=== PATIENT | female | born 1935 | race Caucasian/White ===

== ENCOUNTER 2018-12-05 13:45 | Inpatient (IN) | payer OTHER, MEDICAID ==
[~2018-12-05] VITALS: Ht 162.5 cm; Wt 53.5 kg
--- NOTE | ~2018-12-05 | EKG ---
[place], [place] ELECTROCARDIOGRAM REPORT NAME: DIANA BASHIR UNIT #: [id number] ROOM: 312 DOCTOR: LUCIANO DRAFT REPORT BIRTHDATE: [birth year] [facility] Test Date: 2018-12-05 Test Time: 18:07:02 Pat Name: DIANA BASHIR Department: Room: [facility] 1 Gender: F Combination Saw Operator: Sally Castaneda : 1935 Requested By: COSTA LAMA Order Number: [id number] Reading MD: Raudel Hernández Measurements Intervals [place] Rate: 108 P: 77 GA: 171 QRS: -9 QRSD: 94 T: 84 QT: 335 QTc: 449 Interpretive Statements Sinus tachycardia Atrial premature complex Right atrial enlargement No previous ECG available for comparison Electronically Signed On 12-08-2018 11:52:50 PDT by Raudel Hernández CM:EKGRPT:ELECTROCARDIOGRAM REPORT [id number] [id number] COSTA WOLF DRAFT REPORT COSTA LAMA
--- NOTE | ~2018-12-05 | DS ---
[place], [place] DISCHARGE SUMMARY NAME: DIANA BASHIR UNIT #: [id number] ROOM: 312 DOCTOR: LALITHA SAAVEDRA MD BIRTHDATE: [birth year] DOS: 12/23/2018 CHIEF COMPLAINT: "I would like a cup of coffee." HISTORY OF PRESENT ILLNESS: This is an 83-year-old white female who resides at [facility]. The patient was admitted due to increased agitation and aggressiveness. The patient has been attempting to barricade other residents into their rooms. The patient was also chasing other residents in the building. The patient did not like to be alone, so she would grab on to other residents and not let them leave her sight. The patient was also finger painting with bowel movements and basically out of control to the point where she was putting both herself and others at substantial risk of harm. The patient was admitted now to rule out organic factors, to stabilize on medication and to return to the least restrictive environment when psychiatrically stable. SUMMARY OF THE HOSPITAL COURSE: The patient was admitted to the unit where initially her Depakote was adjusted in the hopes that it would control her mood lability. She was maintained on Exelon and Namenda. It was felt that there was definitely a significant anxiety component. Vistaril was used at first, but was unsuccessful, so she was started simultaneously on Cymbalta 30 mg at bedtime and Klonopin 0.5 mg 3 times a day. Dose of Klonopin was increased to its max of 1 mg 3 times a day and then subsequently the daytime dose was lowered to 0.5 twice a day and 1 mg at bedtime. The dose of the Cymbalta was brought up to 60 mg at bedtime to help with depression, decrease anxiety and aid sleep. This did seem to impact positively on her overall demeanor. Zyprexa was utilized in the place of Depakote ultimately in the hopes that it would augment the effectiveness of the antidepressant as well as help her sleep and stabilize her mood. Overall, she improved gradually with this combination to the point where she was no longer grabbing out at others. She was not trying to barricade people into rooms and she became much more redirectable. The patient then returned back to [facility]. MENTAL STATUS AT DISCHARGE: The patient is alert and oriented to self only. Her responses are short and simple, oftentimes inappropriate. There, however, was no agitation or aggression. No hypomania or jimenez. No gross psychotic symptoms. No auditory or visual hallucinations. No delusions, no paranoia. Short-term memory is very poor. FINAL DIAGNOSES: Major depression, recurrent, severe with psychotic features; Alzheimer's dementia. DISPOSITION: The patient is going to be returned to [facility]. At the time of discharge, she was medically and psychiatrically stable. I will be the treating psychiatrist of record upon her readmission there. [place], [place] DISCHARGE SUMMARY NAME: DIANA BASHIR UNIT #: [id number] ROOM: 312 DOCTOR: LALITHA SAAVEDRA MD BIRTHDATE: [birth year] LALITHA SAAVEDRA MD CM:ARIS [id number] LALITHA SAAVEDRA MD 12/23/18 1323 interface
--- NOTE | ~2018-12-05 | PR ---
[place], [place] PROGRESS NOTE NAME: DIANA BASHIR UNIT #: [id number] ROOM: 312 DOCTOR: LALITHA SAAVEDRA MD BIRTHDATE: [birth year] DOS: 12/08/2018 CHIEF COMPLAINT: "Morning." SUMMARY OF THE VISIT: The patient was interviewed as she was resting quietly in bed. As I entered and awoke her, she wished me good morning and then motioned towards me to attempt to hold her hand. The patient was fairly pleasant, but seems somewhat anxious and also somewhat labile. She redirected well and with a little bit of support did calm down quickly. MENTAL STATUS: She is at least alert and oriented to self. It is unclear if she realizes she is in the hospital, let alone [place]. She is not oriented to time. Mood for the most part is somewhat anxious and fretful. There is some mood lability noted. There are no gross psychotic symptoms. She does process information slowly and short term memory is exceedingly poor. PLAN: Her valproic acid level is low at 45.9. I will increase her Depakote Sprinkles to 500 mg t.i.d. in an effort to decrease mood lability. I will also reach out to [facility] to determine if she has ever been on Nuedexta to explore all possible treatment options. We will continue to engage her in individual and redmond milieu activity, returning to the least restrictive environment when psychiatrically stable. LALITHA SAAVEDRA MD CM:PNTRANS [id number] LALITHA SAAVEDRA MD 12/08/18 0945 interface
--- NOTE | ~2018-12-05 | PR ---
[place], [place] PROGRESS NOTE NAME: DIANA BASHIR UNIT #: [id number] ROOM: 312 DOCTOR: LALITHA SAAVEDRA MD BIRTHDATE: [birth year] DOS: 12/11/2018 INTERVAL NOTE CHIEF COMPLAINT: "Good morning come here." SUMMARY OF THE VISIT: The patient was interviewed as she was sitting in a Miriam chair in the quiet room. She engaged readily in superficial conversation. She was fairly bright and pleasant. She did want me to come closer to me and reached out for me repeatedly. Nurses report, she continues to require a great deal of support and redirection. MENTAL STATUS: She is alert and oriented to self only, doubtful place or time. Mood does seem to still be labile and at times inappropriate. There is no jimenez, hypomania or psychosis. She does process conversation slowly and short term memory continues to be problematic. PLAN: I will go ahead and check a valproic acid level in the a.m. as I am trying to achieve a level between 60 and 80. I will also increase her straight Ativan from 0.5 mg t.i.d. to 1 mg t.i.d. in an effort to decrease her overriding anxiety. We will continue to engage in individual and redmond milieu activity, returning to the least restrictive environment when psychiatrically stable. LALITHA SAAVEDRA MD CM:PNTRANS [id number] LALITHA SAAVERDA MD 12/11/18 1300 interface
--- NOTE | ~2018-12-05 | PR ---
[place], [place] PROGRESS NOTE NAME: DIANA BASHIR UNIT #: [id number] ROOM: 312 DOCTOR: LALITHA SAAVEDRA MD BIRTHDATE: [birth year] DOS: 12/15/2018 INTERVAL NOTE CHIEF COMPLAINT: The patient was somnolent. SUMMARY OF THE VISIT: The patient was attempted to be interviewed as she was resting in a Miriam chair in the quiet room. As I approached her and called out her name and gently touched her shoulder, she did not respond to me. She was very somnolent. Nurses report that she has her days and nights mixed up. MENTAL STATUS: My mental status is limited due to her overall level of somnolence. PLAN: I will discontinue her a.m. dose of Zyprexa to lessen any potential for daytime sedation. I will also switch her Cymbalta back to bedtime, again attempting to lessen daytime sedation and improving nighttime sedation. We will engage in individual and redmond milieu activity, returning to the least restrictive environment when psychiatrically stable. LALITHA SAAVEDRA MD CM:PNTRANS 0 55 LALITHA SAAVEDRA MD 12/15/182152 interface
--- NOTE | ~2018-12-05 | PR ---
[place], [place] PROGRESS NOTE NAME: DIANA BASHIR UNIT #: [id number] ROOM: 312 DOCTOR: LALITHA SAAVEDRA MD BIRTHDATE: [birth year] DOS: 12/09/2018 CHIEF COMPLAINT: "Hey, come here, come here, come here." SUMMARY OF THE VISIT: The patient was interviewed as she was resting quietly in bed. As I approached, she reached out to me and repeatedly asked me to come towards her. Nurses report that she does require a lot of support and redirection and likes to have her handheld or be touched. She requires a great deal of reassurance. MENTAL STATUS EXAMINATION: She is alert and oriented to self, doubtful to place or time. Mood does seem to be very anxious and depressed. She is rather labile too. Memory is poor. PLAN: I will go ahead and increase the Zyprexa to 2.5 mg in the morning and 5 mg at bedtime and add a low-dose of Ativan 0.5 mg t.i.d. to help relieve the anxiety. We will monitor for risk, benefit, engage in individual and redmond milieu activity, returning to the least restrictive environment when stable. LALITHA SAAVEDRA MD CM:PNTRANS 40 LALITHA SAAVEDRA MD 12/09/182138 interface
--- NOTE | ~2018-12-05 | PR ---
[place], [place] PROGRESS NOTE NAME: DIANA BASHIR UNIT #: [id number] ROOM: 312 DOCTOR: LALITHA SAAVEDRA MD BIRTHDATE: [birth year] DOS: 12/19/2018 CHIEF COMPLAINT: "Morning." SUMMARY OF THE VISIT: The patient was interviewed as she was resting in a Miriam chair. She was somewhat somnolent, having received a p.r.n. last evening. In general, there has been a slight improvement in that she is having more good periods, but she still has periods of yelling out and attempting to grab MENTAL STATUS: My mental status this morning was limited due to her somnolence. She did make eye contact when I called her name and she spoke briefly to me, but then drifted back off into sleep. PLAN: At this point in time, I will increase her Zyprexa to 7.5 mg, but attempt to give it at 1800 hours to see if I can get ahead of her , so she does not require p.r.n. She does seem to be tolerating these straight medicines well. We will monitor and support. We will engage in individual and redmond milieu activity, returning to the least restrictive environment when psychiatrically stable. LALITHA SAAVEDRA MD CM:PNTRANS [id number] LALITHA SAAVEDRA MD 12/19/18 1516 interface
--- NOTE | ~2018-12-05 | PR ---
[place], [place] PROGRESS NOTE NAME: DIANA BASHIR UNIT #: [id number] ROOM: 312 DOCTOR: LALITHA SAAVEDRA MD BIRTHDATE: [birth year] DOS: 12/16/2018 INTERVAL NOTE CHIEF COMPLAINT: "Hey, help me here." SUMMARY OF THE VISIT: The patient was interviewed as she was resting in a Miriam chair. She was awake and alert. Nurses report she continues to yell and grab out. There does seem to be a significant anxiety component present. MENTAL STATUS: She is alert and oriented to person, not necessarily place or time. Mood does seem to be still anxious and labile. She does require a great deal of support and redirection. There is no overt auditory or visual hallucination, delusion, or paranoia. Short-term memory remains very poor. PLAN: Despite having a therapeutic valproic acid level, the patient's behavior persists, so I will discontinue the Depakote given the fact that it does seem to be ineffective. Instead, I will raise the Klonopin to 0.5 mg 3 times a day in an effort to stabilize mood and decrease her anxiety. We will monitor for risk, benefit, engage in individual and redmond milieu activity, returning then to the least restrictive environment when psychiatrically stable. LALITHA SAAVEDRA MD CM:PNTRANS [id number] LALITHA SAAVEDRA MD 12/16/18 1414 interface
--- NOTE | ~2018-12-05 | PR ---
[place], [place] PROGRESS NOTE NAME: IDANA BASHIR UNIT #: [id number] ROOM: 312 DOCTOR: ANALIA VALENZUELA CNP BIRTHDATE: [birth year] DOS: 12/21/2018 CHIEF COMPLAINT: "It is better." SUMMARY OF THE VISIT: The patient was interviewed as she sat in a reclining chair in the quiet room. The patient reports that she slept okay. Staff reports that the patient had minimal behaviors throughout the day yesterday. However, last evening, she began to yell out. She was given Geodon IM at 9:30 p.m. It was effective. The patient did sleep throughout the night. MENTAL STATUS EXAMINATION: The patient is alert and oriented to self. She was pleasant and cooperative with me this morning. No jimenez or hypomania noted. No delusions or paranoia noted. No psychotic symptoms noted. No auditory or visual hallucinations noted. The patient's mood was calm. Affect congruent with mood. No agitation, irritability or anxiety noted at this time. PLAN: We will continue the patient's medications as prescribed. The patient does appear to be showing improvement. She appears to be tolerating medications without any side effects. Continue to encourage the patient to engage in individual and redmond milieu activity. Continue fall and safety precautions. Plan is to return the patient to the least restrictive environment when she is considered psychiatrically stable. Analia Valenzuela CNP CM:PNTRANS 11 25 ANALIA VALENZUELA CNP 12/21/182121 interface
--- NOTE | ~2018-12-05 | PR ---
[place], [place] PROGRESS NOTE NAME: DIANA BASHIR UNIT #: [id number] ROOM: 312 DOCTOR: LALITHA SAAVEDRA MD BIRTHDATE: [birth year] DOS: 12/12/2018 INTERVAL NOTE CHIEF COMPLAINT: "Morning." SUMMARY OF THE VISIT: The patient was interviewed as she was feeding herself breakfast. She smiled as I approached and nodded in approval. Otherwise, she chose not to or could not respond to me. Nurses report that she did very well yesterday when the family brought in a weighted blanket, and this did seem to give her some sense of comfort. Of note, I did see her having substantial upper body tremors as she was feeding herself. MENTAL STATUS: She is alert and oriented to self only. Her responses are short, simple, at times nonsensical. There was no agitation or aggression, however. PLAN: I will go ahead and add Cogentin 0.5 mg b.i.d. to see if this lessens the tremor. Whether the tremors are extrapyramidal secondary to the Zyprexa or could be related even to the valproic acid level which is 93.3. If the Cogentin helps, then it is the Zyprexa; if not, may need to back off on the valproic acid a little bit bringing the level between 60 and 80. We will support and monitor. LALITHA SAAVEDRA MD CM:PNTRANS [id number] LALITHA SAAVEDRA MD 12/13/18 0130 interface
--- NOTE | ~2018-12-05 | PR ---
[place], [place] PROGRESS NOTE NAME: DIANA BASHIR UNIT #: [id number] ROOM: 312 DOCTOR: ANALIA VALENZUELA CNP BIRTHDATE: [birth year] DOS: 12/20/2018 CHIEF COMPLAINT: "I want to go home, so I can go to bed." SUMMARY OF THE VISIT: The patient was interviewed as she sat in the quiet room. The patient engaged in conversation with me, telling me that she is not good and she wants to go home, so that she can go to bed. Staff reports that the patient did not sleep last night. She has been showing some slight improvement in her behaviors and has been taking medications as prescribed. Appetite fair. MENTAL STATUS EXAMINATION: The patient is alert and oriented to self. She was pleasant with me. No overt jimenze or hypomania noted. No delusion or paranoia noted. No psychotic symptoms noted. No auditory or visual hallucinations noted. The patient's mood was calm. Her affect is congruent with mood. PLAN: I will continue the patient's medications as prescribed. Monitor for effectiveness and tolerability. The patient will be encouraged to engage in individual and redmond milieu activity. Continue fall and safety precautions. Return the patient to the least restrictive environment when she is considered psychiatrically stable. Analia Valenzuela CNP CM:PNTRANS 0 [id number] ANALIA VALENZUELA CNP 12/20/18 1122 interface
--- NOTE | ~2018-12-05 | PR ---
[place], [place] PROGRESS NOTE NAME: DIANA BASHIR UNIT #: [id number] ROOM: 312 DOCTOR: ANALIA VALENZUELA CNP BIRTHDATE: [birth year] DOS: 12/22/2018 CHIEF COMPLAINT: "I forgot to take the medicine." SUMMARY OF THE VISIT: The patient was interviewed as she sat in the quiet room. The patient did engage somewhat in conversation with me. Staff reports that the patient continues to have increasing agitation in the evening. She was given p.r.n. Geodon which was not effective, so she was also given Vistaril 50 mg IM which was effective. The patient did sleep throughout the night. MENTAL STATUS EXAMINATION: The patient is alert and oriented to self. She was pleasant and cooperative with me. No overt jimenez or hypomania noted. No delusions or paranoia noted. No psychotic symptoms noted. No auditory or visual hallucinations noted. The patient's mood is calm at this time. Affect congruent with mood. No agitation, aggression or irritability noted. PLAN: I will increase the patient's Zyprexa to 10 mg a day to try to help increase with the increased agitation. I will continue to monitor the patient for benefits of medication as well as for side effects. Continue to encourage the patient to engage in individual and redmond milieu activity. Continue fall and safety precautions. Plan is to return the patient to the least restrictive environment when she is considered psychiatrically stable. Analia Valenzuela CNP CM:PNTRANS [id number] ANALIA VALENZUELA CNP 12/23/18 0305 interface
--- NOTE | ~2018-12-05 | PR ---
[place], [place] PROGRESS NOTE NAME: DIANA BASHIR UNIT #: [id number] ROOM: 312 DOCTOR: LALITHA SAAVEDRA MD BIRTHDATE: [birth year] DOS: 12/18/2018 INTERVAL NOTE CHIEF COMPLAINT: "Good morning." SUMMARY OF THE VISIT: The patient was interviewed as she was resting in a Miriam chair. She did awake, make eye contact and wished me good morning. Otherwise, her responses were nonsensical. Nurses report that she did require p.r.n. last evening, but that the day did seem to go better. MENTAL STATUS: She is alert and oriented to self, not place or time. Mood does seem to be more calm and euthymic. Affect is more appropriate. There is no jimenez, hypomania or psychosis. Short-term memory is very poor. PLAN: I will increase the Klonopin, especially the nighttime dose to aid sleep and decrease sundowning. The dose will now be 0.5 mg twice a day and 1 mg at bedtime. We will monitor for risk, benefit, engage in individual and redmond milieu activity, returning then to the least restrictive environment when psychiatrically stable. LALITHA SAAVEDRA MD CM:PNTRANS 1121 [id number] LALITHA SAAVEDRA MD 12/18/18 1445 interface
[2018-12-05] MEDS ORDERED: ASPIRIN81 M1 PO (14:33)
[2018-12-05] MEDS ORDERED: COMBIGAN 0.2%-0.5 ML OU (14:34)
[2018-12-05] MEDS ORDERED: COZAAR50 M1 PO (14:34)
[2018-12-05] MEDS ORDERED: DEPAKOTE SPRIN125 MG PO (14:35)
[2018-12-05] MEDS ORDERED: EXEL13.31 T (14:36)
[2018-12-05] MEDS ORDERED: ANTI-DIARRHEAL2 MG PO (14:36)
[2018-12-05] MEDS ORDERED: ONE DAILY COMP1 EACH PO (14:37)
[2018-12-05] MEDS ORDERED: NAMENDA5 M1 PO (14:38)
[2018-12-05] MEDS ORDERED: RISPERDAL0.5 MG PO (14:38)
[2018-12-05] MEDS ORDERED: RISPERDAL1 M1 PO (14:39)
[2018-12-05] MEDS ORDERED: XALATAN 0.005%2.5 ML OU (14:41)
[2018-12-05] MEDS ORDERED: SECURA PROTECTI50 GM T (14:41)
[2018-12-05] MEDS ORDERED: DAILY VITAMIN1 EAC1 PO (14:49)
--- NOTE | 2018-12-05 16:32 | NUR ---
DIANA BASHIR a 83 year old F admitted via wheel chair from the ADMITTING as a voluntary BY POA admission. Arrived on unit at 1632. ALLERGIES: NKA. Vital signs are: 98.0-68-18-110/62 SPO2 97%RA . The client's POA verbally consented to the following forms with stated understanding: Authorization For The Release of Medical Information, Clothing List, Consent to Voluntary Admission and Hospitalization, Consent and Release Forms/Receipt of Rights, Acknowledgement of Advance Directive Information, Behavioral Health Consent Form, and Informed Consent of Medications. Admitted under the services of Dr. KERI AGUILARLALITHA. A search was conducted and hazardous articles were removed. Client was oriented to the unit. CHRISTI PALOMARES
[2018-12-05 16:55] VITALS: BP 110/62
--- NOTE | 2018-12-05 16:55 | NUR ---
CALL PLACED TO HOSPITALIST NUMBER ONE [phone]. DR. LAMA ANSWERED, MADE AWARE OF NEW CONSULT FOR MEDICAL MANAGEMENT.
[2018-12-05 18:28] LABS: BASO # 0.1 10*3/uL (0.0-0.1); BASO % 1.1 % (0.0-1.0); EOS # 0.2 10*3/uL (0.0-0.4); EOS % 2.7 % (1.0-4.0); HEMATOCRIT 40.2 % (37.0-47.0); HEMOGLOBIN 12.8 g/dl (12.0-16.0); LYMPH # 2.1 10*3/uL (1.3-4.4); LYMPH % 33.7 % (27.0-41.0); MEAN CELL VOLUME 91.2 fl (81.0-99.0); MEAN CORPUSCULAR HGB CONC 31.8 g/dl (33.0-37.0); MEAN PLATELET VOLUME 9.1 fl (9.6-12.3); MONO # 0.8 10*3/uL (0.1-1.0); MONO % 13.4 % (3.0-9.0); NEUT # 3.1 10*3/uL (2.3-7.9); NEUT % 48.9 % (47.0-73.0); PLATELET COUNT AUTOMATED 306 10*3/uL (130-400); RED BLOOD COUNT 4.41 10*6/uL (4.10-5.10); RED CELL DISTRI WIDTH 13.3 % (0-14.5); WHITE BLOOD COUNT 6.3 10*3/uL (4.8-10.8)
--- NOTE | 2018-12-05 18:41 | NUR ---
SPOKE WITH DR. LAMA REGARDING EKG RESULTS. DR. LAMA STATES TO MONITOR PT'S PULSE WHEN RESTING TO ENSURE SHE IS NOT TACHYCARDIC.
[2018-12-05 18:45] LABS: ALBUMIN 3.2 gm/dl (3.1-4.5); ALKALINE PHOSPHATASE 71 U/L (45-117); BUN 18 mg/dl (7-24); CHLORIDE 105 mmol/L (98-107); PHOSPHOROUS 3.7 mg/dL (2.5-4.9); POTASSIUM 3.6 mmol/L (3.5-5.1); SGOT/AST 14 IU/L (3-35); SGPT/ALT 20 U/L (12-78); SODIUM 143 mmol/L (136-145); TOTAL PROTEIN 6.1 gm/dL (6.4-8.2)
[2018-12-05 18:51] LABS: TROPONIN I < 0.015 ng/ml (<0.045)
--- NOTE | 2018-12-05 19:45 | NUR ---
MARITA DAVIDSON NOTIFIED OF NEW ADMISSION.
[2018-12-05 19:54] VITALS: BP 100/61; BP 100/78
--- NOTE | 2018-12-05 20:00 | NUR ---
MANUAL BLOOD PRESSURE OF 100/78
--- NOTE | 2018-12-05 20:12 | NUR ---
PATIENT PACING HALLS, FOLLOWING AROUND MENTAL HEALTH WORKER. PT WALKING AT A FAST PACE WITH HANDS OUT TO MENTAL HEALTH WORKER STATING "WAIT FOR ME. YOU CANT LEAVE ME. TAKE ME BACK TO MY HOUSE, PLEASE. I AM TIRED". IF STAFF WALKED AWAY FROM PATIENT, PT WOULD FOLLOW AROUND STAFF TELLING THEM TO WAIT FOR HER. PT WENT TO WALK INTO THE DINING ROOM AND STATED "OH, WAY TO MANY PEOPLE.". PT LOOKING AT OTHER PATIENTS, EYE DARTING. RESTLESS AND ANXIOUS. REDIRECTION, REASSURANCE, 1:1 INTERACTION, EMOTIONAL SUPPORT, AND LOW STIMULI ENVIRONMENT PROVIDED. ALL NONPHARMALOGICAL INTERVENTIONS INEFFECTIVE. PATIENT INCREASED AGITATION AND ANXIETY. PRN PO 1MG ATIVAN GIVEN AT THIS TIME PER PRN ORDER. WILL CONTINUE TO MONITOR FOR EFFECTIVENESS.
--- NOTE | 2018-12-05 21:38 | NUR ---
PATIENTS SCHEDULED MEDICATIONS; BRIMONIDINE, ZINC OXIDE, LANTAPROST; BROUGHT OVER BY PHARMACY AT THIS TIME. PATIENT IN BED SLEEPING AT THIS TIME.
--- NOTE | 2018-12-05 21:45 | NUR ---
PRN ATIVAN EFFECTIVE. PT LAYING DOWN IN BED WITH EYES CLOSED. RESPS EVEN AND UNLABORED ON ROOM AIR. NO S/S OF DISTRESS NOTED. WILL CONTINUE TO MONITOR.
--- NOTE | 2018-12-05 23:41 | NUR ---
PATIENT REFUSED ADMISSION SKIN ASSESSMENT.
--- NOTE | 2018-12-06 | NUR ---
RADIAL PULSE 76. PT RESTING WITH EYES CLOSED. RESPS EVEN AND UNLABORED ON ROOM AIR. NO S/S OF DISTRESS NOTED.
--- NOTE | 2018-12-06 01:06 | NUR ---
P- ALERT TO PERSON ONLY. CONFUSION AND ST/LT MEMORY DEFICITS NOTED. MOOD ANXIOUS AND PARANOID. RESTLESS, PACING, FOLLOWING STAFF. I- REORIENT FREQUENTLY WHEN CONFUSION IS NOTED. 1:1 THERAPEUTIC INTERACTION WITH EMOTIONAL SUPPORT AND VENTILATION OF FEELINGS PROVIDED. PROVIDE LOW STIMULI/LIGHT ENVIRONMENT. PROVIDE REDIRECTION AND REASSURANCE. PROVIDE WITH MEDICATIONS ON TIME WITH EDUCATION ON EACH. ASSESS MOOD, ORIENTATION, SI/HI, HALLUCINATIONS, DELUSIONS OR PAIN. R- PATIENT REMAINS ALERT TO PERSON ONLY EVEN WITH REORIENTAION PROVIDED. PATIENT ANXIOUS. PT FOLLOWING AROUND MENTAL HEALTHCARE WORKER DURING THE BEGINNING OF THE SHIFT. PT FOLLOWING STAFF, REACHING OUT TO HOLD STAFFS HAND. PT STATING "DONT LEAVE ME. WAIT FOR ME, I NEED YOU TO STAY WITH ME. COME ON, WE NEED TO GO BACK TO MY HOUSE. I AM TIRED, COME ON WE ARE GOING TO BED". PT SEEKING AND PREOCCUPIED WITH 1:1 INTERACTION. PT BECAME ANXIOUS WHEN FIRST WALKED INTO THE DINING ROOM, PT STATED "OH, THERE IS WAY TO MANY PEOPLE IN HERE". REASSURANCE EFFECTIVE. 1:1 INTEARCTION EFFECTIVE. PRN EFFECTIVE. MEDICATION COMPLIANT. UNABLE TO ASSESS SI/HI OR PAIN, PT REFUSED TO TALK MUCH TO THIS NURSE. PATIENT ONLY WANTED TO BE WITH MENTAL HEALTHCARE WORKER. NO S/S OF INTERACTING WITH INTERNAL STIMULI. NO DELUSIONAL THOUGHT PROCESS NOTED. RESPS EVEN AND UNLABORED ON ROOM AIR. NO S/S OF DISTRESS NOTED. AFTER MEDICATIONS GIVEN, PT WAS ASSISTED TO HER ROOM. PT REMAINED IN BED THE REST OF THE TIME WITH EYES CLOSED. GAIT STEADY WHILE AMBULATING. P- REORIENTATION PROVIDED FREQUENTLY WHEN CONFUSION IS NOTED. 1:1 THERAPEUTIC INTERACTION WITH EMTIONAL SUPPORT AND VENTILATION OF FEELINGS PROVIDED WHEN NECESSARY. PROVIDE MEDICATIONS ON TIME WITH EDUCATION ON EACH. REASSURANCE, REDIRECTION AND LOW STIMULI/LIGHT ENVIRONMENT PROVIDED WHEN NECESSARY. ASSESS MOOD, ORIENTATION, SI/HI, HALLUCINATIONS, DELUSIONS EVERY SHIFT. FALLING STAR PROGRAM IN PLACE DUE TO UNSTEADY GAIT AT TIMES. Q15 MINUTE CHECKS MAINTAINED FOR SAFETY.
--- NOTE | 2018-12-06 01:25 | NUR ---
24 HR chart check completed.
--- NOTE | 2018-12-06 05:30 | NUR ---
PATIENT MONITORED ON Q15 MINUTE CHECKS THROUGHTOUT THE NIGHT FOR SAFETY. PATIENT NOTED TO HAVE SLEPT APPROXIMATELY 7 HOURS UNINTERRUPTED.
[2018-12-06 07:17] LABS: THYROID STIM HORMONE (HS) 1.74 uIU/ml (0.358-4.75); VALPROIC ACID (DEPAKENE) 45.9 ug/ml (50-100)
[2018-12-06 07:48] LABS: VITAMIN D, 25-HYDROXY 32.3 ng/mL (30-100)
[2018-12-06 07:51] VITALS: BP 137/56
--- NOTE | 2018-12-06 11:00 | NUR ---
DR. SOLIZ ON UNIT TO ASSESS PATIENT.
--- NOTE | 2018-12-06 11:34 | NUR ---
AM GROUP/EXERCISES/DISCUSSION/ART PT ATTENDED BUT UNABLE TO PARTICIPATE DUE TO LEVELS OF CONFUSION. PT DID NOT EXPRESS ANY IRRITABILITY, ANXIETY, OR INTRUSIVE BEHAVIORS AT THIS TIME. PT WILL CONTINUE TO BE ENOCURAGED TO ATTEND AND PARTICIPATE TO BEST OF PT ABILITY IN FUTURE GROUP SESSIONS.
--- NOTE | 2018-12-06 12:36 | NUR ---
psychosocial hx completed, however it is done with little information as client was not cooperative.
--- NOTE | 2018-12-06 15:04 | NUR ---
Shift chart check completed.
--- NOTE | 2018-12-06 15:41 | NUR ---
PM GROUP/MINNIE/LEISURE SKILLS PT DID NOT ATTEND BUT SLEPT IN ROOM AT THIS TIME. PT WILL CONTINUE TO BE ENCOURAGED TO ATTEND AND PARTICIPATE IN GROUP TO BEST OF PT ABILITY.
--- NOTE | 2018-12-06 17:12 | NUR ---
P: IRRITABLE DURING LUNCH, YELLING AT NURSE, INTRUSIVE OF OTHER SPACE, THREW DRINK ON FLOOR. I: ONE ON ONE; REDIRECTION AND ASSISTED TO QUIET ROOM/HALLWAY FOR CHANGE OF ENVIRONMENT WITH LOW STIMULI. R: EFFECTIVE; PATIENT IS ALERT TO SELF WITH CONFUSION. LONG/SHORT TERM MEMORY DEIFICITS. MOOD IS IRRITABLE AND DEMENDING AT TIMES. NO RESPONSE TO INTERNAL STIMULI. NO VOICED STATEMENT OF HI/SI OR PAIN. MEDICATION COMPLIANT. Q 15 MINUTE SAFETY CHECK. PATIENT IN DINNING ROOM FOR MORNING GROUP BUT DID NOT PARTICIPATE. 1 PERSON ASSIST WITH ACTIVITIES OF DIALY LIVING, INCONTINENT OF BOWEL AND BLADDER. SET UP FOR MEALS WITH ENCOURAGEMENT TO EAT MEALS. P: CONTINUE TO MONITOR FOR AGGRESSION AND CHASING OF STAFF AND OTHER PATIENTS. PROVIDE ONE ON ONE AND REDIRECTION NEEDED.
--- NOTE | 2018-12-06 18:27 | NUR ---
P: PATIENT PACING, INTRUSIVE, DEMANDING, YELLING AT NURSE, INCREASED PACING BECOMING MORE ANXIOUS. STATING "I WANT TO GO HOME, I WANT TO GO HOME NOW" I: ONE ON ONE, REDIRECTION/ORIENTATION, ASSISTED TO QUIET ROOM WITH LOW STIMULI, SOFT MUSIC PROVIDED, OFFERED DRINK; REDIRECTED TO ROOM INEFFECTIVE. R: PRN VISTARIL 50MG PO GIVEN AT THIS TIME. P: CONTINUE TO MONITOR MOOD; REDIRECT/ORIENTATE NEEDED.
[2018-12-06 18:29] LABS: BILIRUBIN NEGATIVE (NEGATIVE); BLOOD NEGATIVE (NEGATIVE); CLARITY CLEAR (CLEAR); COLOR YELLOW (YELLOW); GLUCOSE NEGATIVE (NEGATIVE); KETONE NEGATIVE (NEGATIVE); LEUKO ESTERASE NEGATIVE (NEGATIVE); NITRITE NEGATIVE (NEGATIVE); SPECIFIC GRAVITY <= 1.005 (1.005-1.030); UROBILINOGEN 0.2 E.U./dl (0.2-1.0)
[2018-12-06 18:38] LABS: BACTERIA TRACE; WBC 0-2 wbc/hpf (0-5)
[2018-12-06 19:53] VITALS: BP 151/84
--- NOTE | 2018-12-06 21:45 | NUR ---
Patient alert to person only with confusion noted. ST/LT memory deficits noted. No hallucinations noted at this time. Patient compliant with medications without any difficulty. Patient pacing in hallway with steady gait. Patient intrusive with going into other patients' room and constantly following staff around and telling them "wait for me. I have to tell you something. Come sit with me.". Redirected/reoriented when needed/appropriate. Had patient sit in hallway in chair while this nurse was in hallway next to her. Patient sat for a while then said she wanted to lay down. Patient currently lying down,resting quietly with snoring heard. Plan to continue to encourage medication compliance and continue to redirect/reorient when needed/appropriate. Q 15 minute safety checks continued and maintained. See [facility] flowsheet for further documentation.
--- NOTE | 2018-12-07 00:47 | NUR ---
24 HR chart check completed.
--- NOTE | 2018-12-07 05:27 | NUR ---
Patient slept approx. 8 hours throughout shift. Q 15 minute safety checks continued and maintained.
[2018-12-07 07:19] VITALS: BP 141/70
--- NOTE | 2018-12-07 12:54 | NUR ---
AM GROUP/GAMES DUE TO LEVELS OF CONFUSION PT UNABLE TO ATTEND OR PARTICIPATE IN GROUP. PT ROAMING HALLS, INTRUSIVE TO STAFF AND PEERS.
--- NOTE | 2018-12-07 17:14 | NUR ---
PT YELLING OUT THROUGHOUT THE DAY. INCREASED ANXIETY, UNABLE TO REDIRECT TO REST. PT PACING THE [place]. IN/OUT OF OTHERS ROOMS. VISTARIL 50 MG GIVEN AT 1057 WITH NO EFFECTIVENESS NOTED. PRN TYLENOL GIVEN AT 1544 FOR C/O BACK PAIN AND WAS EFFECTIVE. UNABLE TO GET PT TO REST. ALERT TO PERSON WITH CONFUSION AND MEMORY DEFICITS NOTED. NO HALLUCIANTIONS OR DELUSIONS NOTED. INCONTINENT OF URINE X1. PT GRABBING A HOLD OF OTHER PATIENTS HANDS. UNABLE TO REDIRECT PT. PT REDIRECTED TO HER ROOM FOR REST MULTIPLE TIMES WITH NO EFFECTIVENESS. DEMANDING WITH STAFF AND PATIENTS. BEHAVIORS MONITORED WITH Q15 MINUTE SAFETY CHECKS. SEE [facility] FLOWSHEET FOR SPECIFIC MONITORING.
--- NOTE | 2018-12-07 19:48 | NUR ---
Patient yelling,walking into other patients' room,demanding and intrusive. Patient pacing hallway and exit seeking. Patient yelling " I want to go home. You take me home now.". All non-pharmacological interventions unsuccessful. Medicated with Vistaril po prn for anxiety/agitation. Will monitor behaviors.
[2018-12-07 20:00] VITALS: BP 150/93
--- NOTE | 2018-12-07 21:58 | NUR ---
Patient alert to person only with confusion noted. ST/LT memory deficits noted. No hallucinations noted at this time. Patient compliant with medications without any difficulty. Patient pacing in hallway with steady gait. Patient still being intrusive and demanding but has calmed down tremendously. No longer yelling and no longer exit seeking at this time. Redirected/reoriented when needed/appropriate. Plan to continue to encourage medication compliance and continue to redirect/reorient when needed/appropriate. Q 15 minute safety checks continued and maintained. See [facility] flowsheet for further documentation.
--- NOTE | 2018-12-08 04:51 | NUR ---
PT SLEPT 6+ HOURS, WENT TO BED AT 2230
[2018-12-08 07:50] VITALS: BP 154/55
--- NOTE | 2018-12-08 08:07 | NUR ---
Patient resting quietly with no c/o discomfort. Respirations easy and regular. Vital signs stable. No overt distress. DR. SAAVEDRA ON UNIT. UPDATE GIVEN. CHRISTI PALOMARES
--- NOTE | 2018-12-08 08:30 | NUR ---
Treatment Plan meeting with Dr. Hermosillo, RN, AT, SW and General Ledger Accountant. Plan for discharge at the end of the week, possible Next Week. Pt. came ot [facility] from [facility]. Will reach out to facility today to discuss discharge Planning.
--- NOTE | 2018-12-08 08:56 | NUR ---
PHYSICAL THERAPY Nursing screen received and chart reviewed. Physical therapy referral received. Thank you. Jimena Duong,PT,DPT
--- NOTE | 2018-12-08 09:28 | NUR ---
Left Message for Demian in Admissions to discuss discharge Planning.
--- NOTE | 2018-12-08 11:03 | NUR ---
Clinical Updates faxed to [facility].
--- NOTE | 2018-12-08 11:24 | NUR ---
DR. SOLIZ ON FLOOR TO ASSESS PT, UPDATE PROVIDED.
--- NOTE | 2018-12-08 11:34 | NUR ---
AM GROUP PT DID NOT ATTEND MORNING GROUP THERAPY. PT WAS IN BED RESTING.
--- NOTE | 2018-12-08 12:46 | NUR ---
PT ANXIOUS, IRRITABLE, PACING HALLS. ATTEMPTED TO PROVIDE PT WITH 1:1 AND EMOTIONAL SUPPORT. PT REDIRECTED, TOILETED AND ASSISTED WITH LUNCH. INTERVENTIONS INEFFECTIVE AT THIS TIME. PRN VISTARIL 50MG PO GIVEN PER PRN ORDER.
--- NOTE | 2018-12-08 15:16 | NUR ---
Shift chart check completed.
--- NOTE | 2018-12-08 15:30 | NUR ---
PT IS ANXIOUS, INTRUSIVE, DEMANDING. PT ASSESSED FOR ORIENTATION LEVEL, MOOD, AND AFFECT. ASSESSED FOR HALLUCINATIONS AND DELUSIONS. ADMINISTERED MEDICATIONS PRESCRIBED. PT SLEPT THROUGH BREAKFAST, AWAKENING SHORTLY BEFORE LUNCH. PT CONTINENT OF BOWEL AND BLADDER, WAKING UP AND TAKING SELF TO BATHROOM. PT THEN BEGAN YELLING OUT "THIS IS NOT MY HOME". PT BECOMING ANXIOUS, ABLE TO FOLLOW VERBAL CUES AND RESPOND APPROPRIATELY. PT DISPLAYS NO HALLUCINATIONS; HOWEVER, PT IS CONFUSED, DISPLAYING POOR COGNITION REGARDING OREINTATION TO PLACE OR TIME. PT STATES "ARE YOU MY DAUGHTER?" AND "IS THIS MY HOUSE?" REPEATEDLY, UNABLE TO BE REDIRECTED. PT ONLY CALMS WITH 1:1 INTERACTION, ALSO REPEATEDLY STATING "dON'T LEAVE ME, I'LL CRY". PT IS MEDICATION COMPLIANT WITHOUT DIFFICULTY. PRN VISTARIL INEFFECTIVE AT THIS TIME. WILL CONTINUE TO REORIENT PT AND PROVIDE REASSURANCE NEEDED. WILL CONTINUE TO ENCOURAGE MEDICATION COMPLIANCE. WILL REDIRECT NEEDED AND PROVIDE EMOTIONAL SUPPORT APPROPRIATE. Q15 MIN MONITORING PER POLICY.
--- NOTE | 2018-12-08 15:34 | NUR ---
PM GROUP/LEISURE INTERESTS PT ATTENDED AFTERNOON GROUP THERAPY BUT IS UNABLE TO PARTICIPATE DUE TO COGNITIVE IMPAIRMENT AND CONFUSION. PT REPEATEDLY ASKED AND AT TIMES DEMANDED, "TAKE ME HOME! I WANT TO GO HOME!" PT COULD NOT BE DISTRACTED. ATTEMPTS WERE MADE TO WALK WITH PT TO CALM HER, BUT PT WOULD BECOME IRRITATED AND DEMAND TO GO HOME ALL THE MORE. PT LATCHES ON AND WANTS TO BE CLOSE TO THE PERSON THAT SHE IDENTIFIES WITH.
[2018-12-08 19:45] VITALS: BP 150/60
--- NOTE | 2018-12-08 20:33 | NUR ---
VISTARIL GIVEN FOR SIGNS OF ANXIETY. MEDICATION COMPLIANT. RESTING IN BED. REFUSES PM SNACK. STATES SHE DOESN'T WANT TO BE ALONE. WILL SIT WITH CLIENT TILL SHE RELAXES. BLACK R EYE HEALING WELL. DENIES BLURRINESS AT THIS TIME. UNABLE TO HOLD 1:1 DUE TO COGNITION.
--- NOTE | 2018-12-08 20:41 | NUR ---
EVENING/RELAXTION/DISCUSSION PT UNABLE TO ATTEND AT THIS TIME DUE TO SLEEPING AND LEVELS OF CONFUSION.
--- NOTE | 2018-12-08 22:11 | NUR ---
RESTING WELL SINCE GETTING VISTARIL
--- NOTE | 2018-12-09 00:40 | NUR ---
24 HR chart check completed.
[2018-12-09 07:29] VITALS: BP 116/78
--- NOTE | 2018-12-09 08:30 | NUR ---
Treatment Plan meeting with Dr. Hermosillo, RN, AT, SW and Global Category Manager. Plan for discharge next week. Pt. is from [facility]. Call out to facility to discuss discharge planning.
--- NOTE | 2018-12-09 11:25 | NUR ---
Occupational Therapy evaluation completed on 3 with full eval to follow. Precautions include 3N unit precautions, impaired cognition,anxiety and perseverative regarding going "home",low complexity level 23310 via chart review, testing and evaluation. Recommend no further OT at this time and return to correction with 24 hr supervision/assist in ADLs d/t impaired cognition. Thank you. Vero Henson OTR/l
--- NOTE | 2018-12-09 11:35 | NUR ---
PHYSICAL THERAPY Physical therapy evaluation only completed. Full details and evaluation to follow. Patient is SBA in room and hallways. Not appropriate for PT at this time. Continue mobility with nursing to prevent decline in functional mobility. Thank you, Danisha Flores, SPT Jimena Duong,PT,DPT.
--- NOTE | 2018-12-09 11:51 | NUR ---
AM GROUP/COPING WITH ANXIETY PT WAS PRESENT FOR MORNING GROUP THERAPY AND SAT AT THE TABLE WITH PEERS. PT IS UNABLE TO PARTICIPATE DUE TO COGNITIVE IMPAIRMENT. PT MAINLY SAT AND STARED AND WOULD OCCASIONALLY ASK, "WHEN CAN I GO HOME? YOU'RE TAKING ME HOME, COME ON LET'S GO"
--- NOTE | 2018-12-09 13:27 | NUR ---
Spoke with Demian at [facility]. Notified of Plans to discharge next week. Updates have been received via fax. Pt. is [facility] at facility and Medicaid bed Hold. Will return to [facility] at discharge.
--- NOTE | 2018-12-09 17:55 | NUR ---
DR. SOLIZ ON UNIT TO ASSESS PATIENT.
--- NOTE | 2018-12-09 18:48 | NUR ---
P: INTRUSIVE WITH STAFF AND OTHER PATIENT, REPETATIVE VOICED CONCERNS OF WANTING TO GO HOME. PATIENT STATED "I LOVE YOU, TAKE ME HOME" PATIENT ATTEMTPING TO PUSH ON NURSE COMPUTER STATION. I: ONE ON ONE, REDIRECTION/ORIENTATION, ASSISTED TO DINING ROOM WITH DRINK AND WATCH TV FOR CHANGE OF ENVIRONMENT. R: CONTINOUS REDIRECTION/ORIENTATION; PATIENT IS ALERT WITH CONFUSION. LONG/SHORT TERM MEMORY DEFICITS. MEDICAITON COMPLAINT. Q 15 MINUTE AFTER CHECKS. NO RESPONSE TO INTERNAL STIMULI. NO VOICED STATEMENT OF HI/SI OR PAIN. 1 PERSON ASSIST WITH ACTIVITIES OF DAILY LIVING, CONTINENT OF BOWEL AND BLADDER. SET UP FOR MEALS, INTAKES FAIR WITH ENCOURAGEMENT OF FLUID. P: CONTINUE TO INCREASED AGGRESSION; PROVIDE ONE ON ONE AND REDIRECTION NEEDED.
[2018-12-09 19:27] VITALS: BP 121/80
--- NOTE | 2018-12-10 03:28 | NUR ---
P- PT PACING HALLWAY, ATTEMPTING TO FOLLOW AND GRAB AT STAFF STATING "YOU'RE GOING TO TAKE ME HOME, I NEED TO GO HOME". INTRUSIVE/DISRUPTIVE. I- ASSESSED ORIENTATION, MOOD, AND BEHAVIOR. REDIRECTED AND PRESENTED WITH REALITY. PROVIDED 1:1 WITH EMOTIONAL SUPPORT. ENCOURAGED MEDICATION COMPLIANCE AND EDUCATE. MONITOR SLEEP. R- PT ALERT AND ORIENTED TO SELF, CONFUSED. MOOD ANXIOUS. PT REQUIRES FREQUENT REDIRECTION THROUGHOUT SHIFT, UNRECEPTIVE TO REORIENTATION WHEN PRESENTED. NO AGITATION OR AGGRESSION NOTED. PT MEDICATION COMPLIANT WITHOUT DIFFICULTY, UNABLE TO EDUCATE DUE TO COGNITION. PT VOICES NO SI/HI AND HALLUCINATIONS, NO NOTED RESPONDING TO INTERNAL STIMULI. NO PARANOIA/DELUSIONS OBSERVED. NO PHYSICAL COMPLAINTS VOICED. ALL NEEDS ANTICIPATED BY STAFF, COMPLIANT WITH HANDS ON CARE, GAIT STEADY. PT CURRENTLY LAYING DOWN WITH EYES CLOSED, RESPIRATIONS EASY AND REGULAR, NO SIGNS OR SYMPTOMS OF DISTRESS NOTED. P-CONTINUE TO MONITOR MOOD AND BEHAVIORS. REORIENT AND REDIRECT NEEDED. PROVIDE 1:1 FOR VENTILATION OF FEELINGS. ENCOURAGE MEDICATION COMPLIANCE AND EDUCATE. MAINTAIN Q 15 MIN CHECKS.
--- NOTE | 2018-12-10 03:58 | NUR ---
24 HOUR CHART CHECK COMPLETED.
--- NOTE | 2018-12-10 06:07 | NUR ---
PATIENT OBSERVED ON Q 15 MIN CHECKS TO HAVE SLEPT THROUGHOUT THE NIGHT WITH NO AWAKENINGS OR SIGNS AND SYMPTOMS OF DISTRESS NOTED.
--- NOTE | 2018-12-10 07:40 | NUR ---
DR. SOLIZ ON UNIT TO ASSESS PATIENT.
--- NOTE | 2018-12-10 08:00 | NUR ---
Treatment Plan meeting with Dr. Hermosillo, RN, AT, SW and Crm Administrator. Plan for discharge at the end of the week, possible beginning of next week with return to [facility]. Dr. Hermosillo is working on medication adjustments.
[2018-12-10 08:12] VITALS: BP 121/70
--- NOTE | 2018-12-10 11:58 | NUR ---
AM GROUP PT DID NOT ATTEND MORNING GROUP THERAPY. PT WAS IN BED SLEEPING.
--- NOTE | 2018-12-10 15:36 | NUR ---
PM GROUP/LEISURE INTERESTS PT WAS PRESENT FOR AFTERNOON GROUP THERAPY BUT IS UNABLE TO PARTICIPATE DUE TO COGNITIVE IMPAIRMENT. PT WAS INSISTANT THAT I TAKE HER HOME AND WAS NOT ABLE TO BE REDIRECTED. PT EVENTUALLY SAT OUTSIDE THE ROOM IN A CHAIR AND FELL ASLEEP. PT IS SOMEWHAT INTRUSIVE OF PEERS AND BECAME ONLY SLIGHTLY AGITATED. PT EXHIBITED NO AGITATION OR AGGRESSION WHILE IN GROUP
--- NOTE | 2018-12-10 17:09 | NUR ---
PT IS ANXIOUS AND DEMANDING. CONFUSION. PT ATTEMPTING TO MUSEUM TECHNICIAN UNSEEN OBJECTS FROM THE FLOOR. PT ASSESSED FOR ORIENTATION LEVEL, MOOD, AND AFFECT. ASSESSED FOR HALLUCINATIONS AND DELUSIONS. ADMINISTERED MEDICATIONS PRESCRIBED. PT SLEPT THROUGH BREAKFAST, AWAKENING SHORTLY BEFORE LUNCH. PT INCONTINENT OF BOWEL AND BLADDER. PROVIDED WITH HOC. PT BECOMING ANXIOUS, ABLE TO FOLLOW VERBAL CUES AND RESPOND APPROPRIATELY. PT TALKING TO UNSEEN OTHERS AND ATTEMPTING TO MUSEUM TECHNICIAN OBJECT OFF FLOOR. PT COULD NOT STATE WHAT OBJECT WAS, SIMPLY STATES "IT IS THERE AND I AM TRYING TO GET IT". PT IS CONFUSED, DISPLAYING POOR COGNITION REGARDING OREINTATION TO PLACE OR TIME. PT STATES "TAKE ME HOME" REPEATEDLY, UNABLE TO BE REDIRECTED. PT ONLY CALMS WITH 1:1 INTERACTION. PT IS MEDICATION COMPLIANT WITHOUT DIFFICULTY. 1300 MEDICATIONS HELD D/T PT HAVING UNSTEADY GAIT AND WALKING WITH EYES CLOSED, UNAWARE OF NEED TO REST, LACK OF SAFETY AWARENESS PRESENT. PT ASSISTED TO NAP IN BED, SAT WITH PT ASSURING HER OF SAFETY UNTIL SHE FELL ASLEEP. WILL CONTINUE TO REORIENT PT AND PROVIDE REASSURANCE NEEDED. WILL CONTINUE TO ENCOURAGE MEDICATION COMPLIANCE. WILL REDIRECT NEEDED AND PROVIDE EMOTIONAL SUPPORT APPROPRIATE. Q15 MIN MONITORING PER POLICY.
--- NOTE | 2018-12-10 21:37 | NUR ---
PT REFUSED HS BP AND TEMP AFTER MULTIPLE ATTEMPTS. NO SIGNS OR SYMPTOMS OF DISTRESS NOTED.
--- NOTE | 2018-12-10 21:55 | NUR ---
P- PT INTRUSIVE/DISRUPTIVE, CONFUSED, AGITATED. I-PATIENT REDIRECTED AND REORIENTED. PROVIDED 1:1 WITH EMOTIONAL SUPPORT. PROVIDED DIVERSION TECHNIQUES TO HELP CALM PATIENT. ENCOURAGED MEDICATION COMPLIANCE. R-PT ALERT AND ORIENTED TO SELF, CONFUSED IN ALL OTHER AREAS. PT UNRECEPTIVE TO THERAPUETIC INTERVENTIONS, REMAINS AGITATED STATING "COME ON, COME ON, I NEED TO GO HOME, TAKE ME HOME". PT EXIT SEEKING, REMOVED KEYPAD FROM WALL, PULLING AND KICKING AT DOORS. PT RESPONDING TO INTERNAL STIMULI, OBSERVED TALKING TO A CHAIR TO TAKE HER HOME. MEDICATION COMPLIANT. P- CONTINUE TO MONITOR FOR ESCULATING BEHAVIORS. PROVIDE REORIENTATION FREQUENTLY, REDIRECT NEEDED. MAINTAIN ELOPEMENT PRECAUTIONS AND Q 15 MIN SAFETY CHECKS.
--- NOTE | 2018-12-11 02:44 | NUR ---
PT OBSERVED GETTING OUT OF BED AND ATTEMPTING TO STAND ON ONE LEG WITH A BLANKET STATING "LEAVE ME ALONE IM TRYING TO PUT A DRESS ON". PT UNABLE TO BE REDIRECTED BACK TO BED AT THIS TIME. PT CURRENTLY IN MELANIE CHAIR NEAR NURSES STATION DUE TO LACK OF SAFETY AWARENESS. PT CALM, RESTING WITH EYES CLOSED.
--- NOTE | 2018-12-11 05:01 | NUR ---
24 HOUR CHART CHECK COMPLETED.
--- NOTE | 2018-12-11 05:58 | NUR ---
PATIENT OBSERVED ON Q 15 MIN CHECKS TO HAVE SLEPT <1 HOUR THROUGHOUT THE NIGHT. PT CONTINUES TO REPSOND TO INTERNAL STIMULI, TALKING TO UNSEEN OTHERS AND OBSERVED PICKING AT THE AIR. UNABLE TO REDIRECT. NO SIGNS OR SYMPTOMS OF DISTRESS NOTED.
[2018-12-11 07:44] VITALS: BP 121/69
--- NOTE | 2018-12-11 08:00 | NUR ---
Treatment Plan meeting with Dr. Hermosillo, RN, AT, SW and Script Editor. Plan for discharge Next week. Pt. will return to [facility].
--- NOTE | 2018-12-11 08:15 | NUR ---
PT ATTENDING TO VISUAL AND POSSIBLY TACTILE HALLUCINATIONS. PT ASSESSED FOR MOOD, AFFECT, AND BEHAVIORS. ASSESSED FOR HALLUCINATIONS AND DELUSIONS. ADMINISTERED MEDICATIONS PER ORDER. REALITY PRESENTED. PT MOOD IS SOMEWHAT ANXIOUS. AFFECT IS FLAT, PT OBSERVED YELLING AT STAFF. PT IS MOVING ARMS AND HANDS IN REACHING MOTION FOR UNSEEN OBJECTS. PT ALSO MAKING FOLDING MOTIONS WITH UNSEEN OBJECTS. PT UNRECEPTIVE TO REALITY ORIENTATION. PT IS VERY CONFUSED, ORIENTED TO SELF ONLY. PT COMPLIANT WITH MEDICATIONS WITHOUT DIFFICULTY. WILL CONTINUE TO REORIENT AND REDIRECT PT APPROPRIATE. WILL CONTINUE TO PRESENT REALITY. WILL CONTINUE TO ENCOURAGE MEDICATION COMPLIANCE. Q15 MIN MONITORING PER POLICY.
--- NOTE | 2018-12-11 11:20 | NUR ---
DR. SOLIZ ON UNIT TO ASSESS PATIENT.
--- NOTE | 2018-12-11 12:22 | NUR ---
AM GROUP/LIGHT THERAPY PT DID NOT ATTEND MORNING GROUP THERAPY. PT WAS SLEEPING RECLINED IN A MELANIE CHAIR IN A QUIET ROOM
--- NOTE | 2018-12-11 15:30 | NUR ---
PM GROUP PT DID NOT ATTEND AFTERNOON GROUP THERAPY. PT WAS IN BED SLEEPING
[2018-12-11 19:42] VITALS: BP 114/89
--- NOTE | 2018-12-11 21:32 | NUR ---
Patient alert to person only with confusion noted. ST/LT memory deficits noted. Visual hallucinations noted with patient in dining room looking at floor and seeing a pair of shoes that was not seen by staff. Was able to redirect patient. Patient compliant with medication without any difficulty. Patient intrusive and demanding at times but is able to be redirected. Patient ambulating in hallway with steady gait. Plan to continue to encourage medication compliance and also continue to redirect/reorient when needed/appropriate. Q 15 minute safety checks continued and maintained. See [facility] flowsheet for further documentation.
--- NOTE | 2018-12-12 00:17 | NUR ---
24 HR chart check completed.
--- NOTE | 2018-12-12 05:48 | NUR ---
Patient slept approx. 6 hours throughout shift. Q 15 minute safety checks continued and maintained.
--- NOTE | 2018-12-12 08:00 | NUR ---
Treatment Plan meeting with Dr. Hermosillo, RN, AT, SW and Painter Spray. Plan for discharge Next week. Pt. will return to [facility].
[2018-12-12 08:11] VITALS: BP 151/68
--- NOTE | 2018-12-12 09:02 | NUR ---
DR SOLIZ ON UNIT TO ASSESS PT
--- NOTE | 2018-12-12 10:20 | NUR ---
Clinical Updates faxed to [facility] Attn: Demian [phone].
--- NOTE | 2018-12-12 11:05 | NUR ---
P: CONFUSION, ALERT TO PERSON I: REORIENT PT WHEN NEEDED. PROVIDE 1:1 FOR EMOTIONAL SUPPORT. ENCOURAGE MEDICATION COMPLAINCE. ENCOURAGED PT TO ATTEND GROUPS. R: MEDICATION COMPLIANT WITHOUT DIFFICULTY. PT PACING HALLWAY. ENCOURAGED PT TO REST. PT CONTINUED TO PACE [place]. PT REFUSED GRUOPS P: CONTINUE TO ENCOURAGE MEDICATION COMPLIANCE. SEE [facility] FLOWSHEET FOR SPECIFIC MONITORING. A&O TO SELF ONLY. SEE [facility] FLOWSHEET FOR SPECIFIC MONITORING.
--- NOTE | 2018-12-12 11:40 | NUR ---
AM GROUP PT DID NOT ATTEND MORNING GROUP THERAPY. PT WAS SLEEPING RECLINED IN A MELANIE CHAIR IN THE [place].
--- NOTE | 2018-12-12 12:35 | NUR ---
CALL PLACED TO DAUGHTER RORY AND UPDATE GIVEN. RORY STATED SHE WILL ATTEMPT TO VISIT TOMORROW.
--- NOTE | 2018-12-12 13:40 | NUR ---
LCD and NRD 12/12 per Cathleen at [facility]. [facility] faxed. Awaiting response.
--- NOTE | 2018-12-12 15:33 | NUR ---
PM GROUP PT WAS PRESENT FOR AFTERNOON GROUP THERAPY BUT DID NOT PARTICIPATE. PT WAS RECLINED IN A MELANIE CHAIR SOUND ASLEEP. PT AWOKE ONCE BUT WENT RIGHT BACK TO SLEEP
[2018-12-12 19:36] VITALS: BP 130/70
--- NOTE | 2018-12-12 21:42 | NUR ---
P-CONFUSION. PATIENT ALERT WITH CONFUSION. PATIENT WITH SHORT TERM AND RETIREMENT MEMORY DEFICITS. PATIENT WITH NO RESPIRATORY DISTRESS. PATIENT WITH NO HALLUCINATIONS OR DELUSIONS. PATIENT NO SUICIDAL OR HOMICIDAL IDEATIONS. I-REDIRECTION WITH 1:1 THERAPEUTIC INTERVENTIONS AND PRESENT REALITY. EDUCATE AND ENCOURAGE MEDICATION COMPLIANCE. R-PATIENT DEMANDING AT TIMES WITH NURSING STAFF IN DINING AREA. PATIENT INTERACTING WITH PEERS INTERMITTENTLY WITH NONSENSICAL CONVERSATIONS. PATIENT MEDICATION COMPLIANT. PATIENT PROVIDED NOURISHMENT AND FLUIDS AT HS P-CONTINUE TO ENCOURAGE MEDICATION COMPLIANCE, CONTINUE TO PRESENT REALITY, ENCOURAGE GROUP THERAPY WHILE AWAKE
--- NOTE | 2018-12-13 01:47 | NUR ---
24 HR chart check completed.
--- NOTE | 2018-12-13 06:49 | NUR ---
PATIENT SLEPT 8 HOURS OF UNINTERRUPTED SLEEP THROUGHOUT SHIFT. Q 15 MINUTE CHECKS MAINTAINED
[2018-12-13 07:36] VITALS: BP 140/70
--- NOTE | 2018-12-13 09:58 | NUR ---
ALERT TO PERSON WITH CONFUSION AND MEMORY DEFICITS NOTED. FALL PRECAUTION AND ELOPEMENT/WANDER PRECAUTION MAINTAINED. Q15 MINUTE SAFETY CHECKS MAINTAINED. INCREASED ANXIETY NOTED. NO HALLUCINATIONS OR DELUSIONS NOTED. NO SI/HI NOTED. HELD AM MEDICATIONS DUE TO PATIENT SLEEPING. OVEN ROASTER MALATHI HA UPDATED ON MEDICATIONS BEING HELD. HYGIENE CARE PROVIDED WHEN NEEDED. SEE [facility] FLOWSHEET FOR SPECIFIC MONITORING.
--- NOTE | 2018-12-13 11:51 | NUR ---
PT REFUSED ALL MEDICATIONS.
--- NOTE | 2018-12-13 12:39 | NUR ---
AM/CARLA/ART PT IN ATTENDANCE BUT RESTING ENTIRE GROUP. PT WILL CONTINUE TO ATTEND GROUP AND BE ENCOURAGED TO PARTICIPATE TO BEST OF PT ABILITY IN FUTURE GROUP SESSIONS.
[2018-12-13 13:35] LABS: BASO % 0.6 % (0.0-1.0); EOS # 0.1 10*3/uL (0.0-0.4); EOS % 1.1 % (1.0-4.0); HEMATOCRIT 43.6 % (37.0-47.0); HEMOGLOBIN 13.9 g/dl (12.0-16.0); LYMPH # 1.3 10*3/uL (1.3-4.4); LYMPH % 21.1 % (27.0-41.0); MEAN CORPUSCULAR HGB CONC 31.9 g/dl (33.0-37.0); MEAN PLATELET VOLUME 9.2 fl (9.6-12.3); MONO # 0.7 10*3/uL (0.1-1.0); NEUT % 65.7 % (47.0-73.0); PLATELET COUNT AUTOMATED 320 10*3/uL (130-400); RED BLOOD COUNT 4.79 10*6/uL (4.10-5.10); RED CELL DISTRI WIDTH 13.2 % (0-14.5); WHITE BLOOD COUNT 6.2 10*3/uL (4.8-10.8)
[2018-12-13 14:02] LABS: ALKALINE PHOSPHATASE 54 U/L (45-117); BUN 16 mg/dl (7-24); CHLORIDE 104 mmol/L (98-107); CREATININE 0.65 mg/dL (0.55-1.02); POTASSIUM 3.8 mmol/L (3.5-5.1); SGOT/AST 27 IU/L (3-35); SGPT/ALT 21 U/L (12-78); SODIUM 141 mmol/L (136-145)
--- NOTE | 2018-12-13 15:54 | NUR ---
PM/MUSIC/PAINTING PT IN ATTENDANCE BUT RESTING ENTIRE TIME. PT CHARMAINE CONTINUE TO ATTEND AND BE ENCOURAGED TO PARTICIPATE TO BEST OF PT ABILITY IN FUTURE GROUP SESSIONS.
[2018-12-13 19:24] VITALS: BP 101/72
--- NOTE | 2018-12-13 23:45 | NUR ---
P-CONFUSION. PATIENT ALERT WITH CONFUSION. PATIENT WITH SHORT TERM AND SKILLED NURSING MEMORY DEFICITS. PATIENT WITH NO RESPIRATORY DISTRESS. PATIENT WITH NO HALLUCINATIONS OR DELUSIONS. PATIENT NO SUICIDAL OR HOMICIDAL IDEATIONS. I-REDIRECTION WITH 1:1 THERAPEUTIC INTERVENTIONS AND PRESENT REALITY. EDUCATE AND ENCOURAGE MEDICATION COMPLIANCE. R-PATIENT DEMANDING AT TIMES WITH NURSING STAFF IN DINING AREA. PATIENT RESTLESS AND AGITATED AT TIMES. ATTEMPT TO LAY PATIENT IN BED. PATIENT GETTING OUT OF BED AND AMBULATING IN ROOM WITH UNSTEADY GAIT. PATIENT PROVIDED 1:1 THERAPEUTIC INTERVENTIONS AND UNABLE TO REDIRECT PATIENT. PATIENT YELLING OUT AND UNABLE TO REDIRECT. PATIENT MEDICATED WITH VISTARIL PO WITH SOMEWHAT EFFECTIVE RESULTS AT THIS TIME. PATIENT PROVIDED FLUIDS AND NOURISHMENT AT HS. PATIENT MEDICATION COMPLIANT. P-CONTINUE TO ENCOURAGE MEDICATION COMPLIANCE, CONTINUE TO PRESENT REALITY, ENCOURAGE GROUP THERAPY WHILE AWAKE
--- NOTE | 2018-12-14 06:28 | NUR ---
24 HR chart check completed. PATIENT SLEPT 4 HOURS OF INTERRUPTED SLEEP THROUGHOUT SHIFT. Q 15 MINUTE CHECKS MAINTAINED
[2018-12-14 08:22] VITALS: BP 136/72
[2018-12-14 20:00] VITALS: BP 114/68
--- NOTE | 2018-12-14 22:30 | NUR ---
UNABLE TO GET CLOSE ENOUGH TO TAKE TRAY OFF. ATTEMPTING TO CLAW STAFF AND KICK.
--- NOTE | 2018-12-14 23:07 | NUR ---
VISTARIL MINIMALLY EFFECTIVE. REFUSES TO STAY IN BED. BROUGHT TO QUIET ROOM IN FRONT OF NURSES DESK
--- NOTE | 2018-12-15 02:37 | NUR ---
24 HR chart check completed.
--- NOTE | 2018-12-15 02:38 | NUR ---
FINALLY SETTLING DOWN. NO LONGER TALKING TO UNSEEN PERSONS.
--- NOTE | 2018-12-15 06:08 | NUR ---
HAS SLEPT POOR ALL NIGHT. DOZED INTERMITTENTLY TILL 0230AM AND HAS BEEN SLEEPING SINCE. ATTEMPTS TO PLACE IN BED UNSUCCESSFUL. REMAINS IN MELANIE CHAIR IN QUIET ROOM. MOVES SELF IN BED. COVERED FOR WARMTH
[2018-12-15 07:44] VITALS: BP 121/67
--- NOTE | 2018-12-15 08:30 | NUR ---
Treatment Plan meeting with Dr. Hermosillo, RN, AT, SW and Pcb Designer. Plan for discharge at the end of the week. Pt. to return to [facility].
--- NOTE | 2018-12-15 11:53 | NUR ---
AM GROUP PT IS UNABLE AT THIS TIME TO ATTEND OR PARTICIPATE IN GROUP THERAPY DUE TO COGNITIVE IMPAIRMENT.
--- NOTE | 2018-12-15 15:45 | NUR ---
PM GROUP PT WAS PRESENT FOR AFTERNOON GROUP THERAPY BUT IS UNABLE TO PARTICIPATE DUE TO COGNITIVE IMPAIRMENT. PT WAS VERY INSISTANT THAT SHE BE "TAKEN HOME" TO THE POINT THAT SHE WAS ATTEMPTING TO PULL ME ACROSS THE ROOM TO THE DOOR. PT COULD NOT BE REDIRECTED. PT BECAME AGGRESSIVE WITH PEERS AND ANOTHER PEER WAS BECOMING AGITATED WITH HER. FLOAT NURSE WAS ASKED TO REMOVE PT FROM THE ROOM.
[2018-12-15 19:38] VITALS: BP 132/78
--- NOTE | 2018-12-15 20:34 | NUR ---
P-CONFUSION, PT STATING "IS THIS MY HOME, TAKE ME HOME, COME ON" I-PRESENT REALITY AND REDIRECT. PROVIDE 1:1 FOR PT TO VOICE FEELINGS WITH EMOTIONAL SUPPORT. PROVIDE DIVERSION TECHNIQUES TO HELP CALM PT. ENCOURAGE MEDICATION COMPLIANCE AND EDUCATE. MONTIOR SLEEP. R-PATIENT ALERT AND ORIENTED TO SELF, CONFUSED PER BASELINE. PT UNRECEPTIVE TO REALITY PRESENTATION AND THERAPEUTIC INTERVENTIONS. MOOD ANXIOUS BUT STABLE AT THIS TIME. MEDICATION COMPLIANT WITHOUT DIFFICULTY, UNABLE TO EDUCATE DUE TO COGNITION. P-CONTINUE TO REORIENT TO REALITY AND REDIRECT NEEDED. PROVIDE 1:1 WITH THERAPEUTIC INTERVENTIONS TO HELP CALM PATIENT. ENCOURAGE MEDICATION COMPIANCE AND EDUCATE. MAINTAIN Q 15 MIN CHECKS.
--- NOTE | 2018-12-15 21:15 | NUR ---
INCREASED AGITATION AND ANXIETY NOTED, PT DISRUPTIVE OF UNIT YELLING OUT "COME ON, TAKE ME HOME, COME ON", ATTEMPTING TO GRAB AT STAFF. PT CONTINUES TO UNRECEPTIVE TO THERAPEUTIC INTERVENTIONS AND REALITY PRESENTATION. PT RECIEVED PRN VISTARIL 50MG IM ORDERED AT THIS TIME. PT TOLERATED INJECTION WELL, WILL CONTINUE TO MONITOR FOR EFFECTIVENESS.
--- NOTE | 2018-12-15 22:32 | NUR ---
PATIENT SITTING UP QUIETLY ACROSS FROM NURSES STATION, CALM DEMEANOR NOTED. PRN VISTARIL EFFECTIVE AT THIS TIME.
--- NOTE | 2018-12-16 00:58 | NUR ---
DR. CLAY ON UNIT, UPDATED ON PATIENT'S SKIN APPEARING REDDENED ON FACE AND CHEST EARILER IN THE SHIFT. PT ASSESSED BY AND IS ASYMPTOMATIC AT THIS TIME. STATED TO NOTIFY HER IF SYMPTOMS REAPPEAR. NO OTHER ORDERS RECEIEVED.
--- NOTE | 2018-12-16 04:16 | NUR ---
24 HOUR CHART CHECK COMPLETED.
--- NOTE | 2018-12-16 06:58 | NUR ---
PATIENT OBSERVED ON Q 15 MIN SAFETY CHECKS TO HAVE SLEPT APPROX 0 HOURS THROUGHOUT THE SHIFT, PT TALKING TO SELF OR CALLING OUT FOR "RORY". PT UNABLE TO BE REDIRECTED. NO SIGNS OR SYMPTOMS OF DISTRESS NOTED.
[2018-12-16 07:40] VITALS: BP 122/65
--- NOTE | 2018-12-16 11:37 | NUR ---
DR. SOLIZ ON UNIT TO ASSESS PT, UPDATE PROVIDED.
--- NOTE | 2018-12-16 11:52 | NUR ---
AM GROUP PT IS UNABLE TO ATTEND OR PARTICIPATE IN GROUP THERAPY DUE TO COGNITIVE IMPAIRMENT.
--- NOTE | 2018-12-16 18:30 | NUR ---
PT ALERT TO PERSON ONLY, CONFUSION AND SHORT TERM MEMORY DEFICITS NOTED PER PT BASELINE. PT MED COMPLIANT WITHOUT DIFFICULTY, UNABLE TO PROVIDE MED EDUCATION D/T COGNITION. PT IRRITABLE AND ANXIOUS AT TIMES. PT CONTINUES TO BE INTRUSIVE/DISRUPTIVE TO MILEUI BY YELLING OUT. NO SUICIDAL THOUGHTS OR BEHAVIORS NOTED. PT AMBULATORY THROUGHOUT UNIT, GAIT UNSTEADY, PT UP TO GEROCHAIR AT THIS TIME TO PROMOTE SAFETY AND REST. PT INCONTINENT OF BOWEL AND BLADDER, CARE PROVIDED NEEDED. PLAN IS TO PROVIDE DIVERSIONAL ACTIVITIES, PROVIDE EMOTIONAL SUPPORT AND 1:l FOR PT TO VOICE FEELINGS, ENCOURAGE MED COMPLIANCE, PROVIDE LOW STIMULATION ENVIRONMENT FOR PT TO CALM.
[2018-12-16 20:00] VITALS: BP 146/78
--- NOTE | 2018-12-16 20:41 | NUR ---
EVENING/DISCUSSION/RELAXTION PT UNABLE TO ATTEND GROUP DUE TO LEVELS OF CONFUSION WELL RESTING AT THIS TIME.
--- NOTE | 2018-12-17 00:30 | NUR ---
CONTINUES TO YELL OUT SHE WANTS TO GO HOME. HAS DAYS AND NIGHTS MIXED UP. SLEPT OVER 4 HOURS ON DAYLIGHT. UNABLE TO REDIRECT. EMOTIONAL SUPPORT PROVIDED
--- NOTE | 2018-12-17 04:24 | NUR ---
24 HR chart check completed. POOR SLEEP. SLEPT APPROX 2 HOURS TONIGHT
--- NOTE | 2018-12-17 04:25 | NUR ---
SLEPT APROX 2 HOURS TONIGHT
--- NOTE | 2018-12-17 08:30 | NUR ---
Treatment Plan meeting with Dr. Hermosillo, RN, AT, and Derrick Engineer. Plan for discharge Saturday. Pt. will return to [facility] at discharge.
[2018-12-17 08:50] VITALS: BP 118/58
--- NOTE | 2018-12-17 10:46 | NUR ---
DR. SOLIZ ON UNIT TO ASSESS PT, UPDATE PROVIDED.
--- NOTE | 2018-12-17 15:34 | NUR ---
PM GROUP/TEAR BOTTLES PT WAS PRESENT FOR AFTERNOON GROUP THERAPY SLEEPING RECLINED IN A MELANIE CHAIR. PT DID NOT WAKE DURING GROUP BUT WAS TALKING IN HER SLEEP. PT IS UNABLE TO PARTICIPATE AT THIS TIME DUE TO COGNITIVE IMPAIRMENT
[2018-12-17 19:56] VITALS: BP 121/70
--- NOTE | 2018-12-17 20:19 | NUR ---
Patient refuses to stay seated,yelling,being disruptive,swinging at staff and attempting to kick staff. Attempted to redirect patient but was unsuccessful. All non-pharmacological interventions unsuccessful. Medicated with Vistaril po prn. Will monitor behavior.
--- NOTE | 2018-12-17 21:00 | NUR ---
24 HR chart check completed.
--- NOTE | 2018-12-17 21:18 | NUR ---
Patient alert to person only with confusion noted. ST/LT memory deficits noted. Patient yelling out saying "I want to go home,come on. I want to go to bed now." Patient compliant with medication without any difficulty. Patient intrusive and demanding at times but is unable to be redirected. Plan to continue to encourage medication compliance and also continue to redirect/reorient when needed/appropriate. Q 15 minute safety checks continued and maintained. See [facility] flowsheet for further documentation.
--- NOTE | 2018-12-17 22:11 | NUR ---
Patient continues to yell out,being disruptive,and trying to swing at staff. Vistaril ineffective. Medicated with Geodon IM prn for continued anxiety/agitation. Will continue to monitor behavior.
--- NOTE | 2018-12-18 05:42 | NUR ---
Patient slept approx. 3 1/2 hours throughout shift with multiple awakenings. Q 15 minutes safety checks continued and maintained.
[2018-12-18 08:00] VITALS: BP 132/83
--- NOTE | 2018-12-18 10:15 | NUR ---
DR. SOLIZ ON FLOOR TO ASSESS PT.
--- NOTE | 2018-12-18 10:30 | NUR ---
Dr. Hermosillo Met with Nursing staff this a.m. for Treatment Plan meeting. Plan for discharge Saturday with return to [facility].
--- NOTE | 2018-12-18 11:56 | NUR ---
AM GROUP/EXERCISE PT WAS PRESENT FOR MORNING GROUP THERAPY SLEEPING RECLINED IN A MELANIE CHAIR. PT DID NOT WAKE DURING GROUP
--- NOTE | 2018-12-18 12:42 | NUR ---
Shift chart check completed.
--- NOTE | 2018-12-18 15:18 | NUR ---
P- ALERT TO PERSON ONLY. CONFUSION AND ST/LT MEMORY DEFICITS NOTED. PT RESTING MOST OF THE DAY. EASILY ARROUSABLE TO VERBAL STIMULI. I- ASSESS MOOD, ORIENATION, SI/HI, HALLUCINATIONS, DELUSION, OR PAIN. REORIENT FREQUENTLY WHEN CONFUSION IS NOTED. ENCOURAGE TO INTERACT WITH PEERS AND STAFF. ENCOURAGE TO ATTEND/PARTICIPATE IN GROUP THERAPIES FOR SOCIALIZATION AND EMOTIONAL SUPPORT. ONE ASSIST WITH ADLS DUE TO INCREASED CONFUSION. 1:1 INTERACTION WITH EMOTIONAL SUPPORT AND VENTILATION OF FEELINGS PROVIDED. PROVIDE WITH MEDICATIONS ON TIME WITH EDUCATION ON EACH. R- PT REMAINS AT BASELINE CONFUSION EVEN WITH REORIENTATION PROVIDED. PT DROWSY AND RESTING MOST OF THE DAY. EASILY ARROUSABLE WITH VERBAL STIMULI. EATING AND DRINKING ADEQUATELY. REFUSE TO ATTEND/PARTICIPATE IN GROUP THERAPIES, PT SLEEPING. UNABLE TO ASSESS INTERVIEW QUESTIONS DUE TO COGNTIONS/NONSENSICAL RESPONSES. NO S/S OF INTERACTING WITH INTERNAL STIMULI. NO DELUSIONAL THOUGHT PROCESS NOTED. NO S/S OF DISTRESS NOTED. RESPS EVEN AND UNLABORED ON ROOM AIR. MEDICATION COMPLIANT. REMAINS ASLEEP. INCONTINENT, ONE ASSIST WITH ADLS DUE TO INCREASED CONFUSION DURING THESE TIMES. P- ASSESS MOOD, ORIENTATION, SI/HI, HALLUCINATIONS, DELUSIONS OR PAIN EVERY SHIFT. REORIENT FREQUENTLY WHEN CONFUSION IS NOTED. ENCOURAGE TO INTERACT WITH STAFF AND PEERS. ENCOURAGE TO ATTEND/PARTICIPATE IN GROUP THERAPIES. 1:1 INTERACTION WITH EMOTIONAL SUPPORT AND VENTILATIONS OF FEELINGS. PROVIDE WITH MEDICATIONS ON TIME AND EDUCATION ON EACH. ONE ASSIST WITH ADLS AND CARE DUE TO INCREASED CONFUSION. FALLING STAR PROGRAM IN PLACE. Q15 MINUTE CHECKS MAINTAINED FOR SAFETY.
--- NOTE | 2018-12-18 15:33 | NUR ---
PM GROUP/PAINTING AND CARDS PT WAS PRESENT FOR AFTERNOON GROUP THERAPY RECLINED IN A MELANIE CHAIR SLEEPING. PT WOKE ONCE AND ATTEMPTED TO GET UP UNASSISTED. PT LAYED BACK DOWN AND WENT BACK TO SLEEP.
[2018-12-18 20:00] VITALS: BP 136/78
--- NOTE | 2018-12-18 20:39 | NUR ---
Patient yelling,demaning,being intrusive and grabbing staff and other patients. Unable to redirect at this time. All non-pharmacological interventions unsuccessful. Medicated with Vistaril po prn for anxiety/agitation. Will monitor behavior.
--- NOTE | 2018-12-18 21:28 | NUR ---
Patient continues to be disruptive,demanding,yelling louder and continuing to grab and kick staff. Attempts to redirect unsuccessful and all non-pharmacological interventions have been unsuccessful. Medicated with Geodon IM prn for increased anxiety/agitation. Will monitor behavior.
--- NOTE | 2018-12-18 22:15 | NUR ---
Patient alert to person only with confusion noted. ST/LT memory deficits noted. Patient yelling out saying "I want to go home,come on. I want to go to bed now." Patient compliant with medication without any difficulty. Patient intrusive and demanding at times but is unable to be redirected. Plan to continue to encourage medication compliance and also continue to redirect/reorient when needed/appropriate. Q 15 minute safety checks continued and maintained. See [facility] flowsheet for further documentation.
--- NOTE | 2018-12-19 00:13 | NUR ---
24 HR chart check completed.
--- NOTE | 2018-12-19 06:15 | NUR ---
Patient slept approx. 7 hours throughout shift. Q 15 minutes safety checks continued and maintained.
--- NOTE | 2018-12-19 07:45 | NUR ---
PT SITTING IN DINING ROOM WITH PEERS, EYES CLOSED RESTING. NO S/S OF DISTRESS NOTED. RESPS EVEN AND UNLABORED ON ROOM AIR.
[2018-12-19 08:00] VITALS: BP 140/80
--- NOTE | 2018-12-19 08:30 | NUR ---
Treatment Plan meeting with Dr. Hermosillo, RN, AT, SW and Bowling Pin Setters Installer. Plan for discharge Saturday. Pt. to return to [facility] at discharge.
--- NOTE | 2018-12-19 10:47 | NUR ---
Spoke with Demian Surgical Garment Assembler at [facility]. Notified of plans to discharge next week. Clinical Updates faxed to Facility Attn: Demian [phone].
--- NOTE | 2018-12-19 11:40 | NUR ---
AM GROUP/LEISURE INTERESTS PT WAS PRESENT FOR MORNING GROUP THERAPY SLEEPING RECLINED IN A MELANIE CHAIR. PT DID NOT WAKE DURING GROUP
--- NOTE | 2018-12-19 13:31 | NUR ---
Shift chart check completed.
--- NOTE | 2018-12-19 18:36 | NUR ---
P- ALERT TO PERSON ONLY; CONFUSED AND ST/LT MEMORY DEFICITS STRONGLY NOTED. SLEEPING MOST OF THE DAY, REFUSING TO WAKE UP. REFUSED BREAKFAST AND LUNCH. WOKE UP DURING DINNER TIME, ATE DINNER. ANXIOUS. PACING. RESTLESS. GRABBING ONTO STAFF. I- ASSESS MOOD, ORIENTATION, SI/HI, HALLUCINATIONS, DELUSIONS OR PAIN. PROVIDE MEDICATIONS ON TIME WITH EDUCATION ON EACH. 1:1 INTERAACTION WITH THERAPEUTIC COMMUNICATION, EMOTIONAL SUPPORT AND VENTILATION OF FEELINGS. DURING THE DAY PROVIDE WITH ACTIVITIES, ADLS, CARE, NUTRITION AND HYDRATION FREQUENTLY. ENCOURAGE TO ATTEND AND PARTICIPATE IN GROUP THERAPIES FOR EMOTIONAL SUPPORT AND SOCIALIZATION. PROVIDE WITH THERAPEUTIC 1:1 INTERACTION. PROVIDE LOW STIMULI ENVIRONMENT. PROVIE WITH COPING AND RELAXATION TECHNIQUES. ONE TO TWO ASSIST WITH ADLS, CARE, AND MEALS DUE TO INCREASED CONFUSION AT THESE TIMES. R- REMAINS AT BASELINE CONFUSION EVEN WITH REORIENTATION PROVIDED. UNABLE TO ASSESS OTHER INTERVIEW QUESTIONS DUE TO COGNITION. MOOD ANXIOUS. PT WOKE UP AROUND DINNER TIME, ATE DINNER. PACING AND YELLING OUT "I NEED TO GO HOME. TAKE ME HOME. COME ON HUNNY, TAKE ME HOME". PATIENTS DAUGHTER CAME TO VISIT, PT REFUSING TO SIT WITH DAUGHTER, HOLDING ONTO THIS NURSES HAND STATING "NO I GO WITH HER. SHE TAKE ME HOME. I SEE YOU ALL THE TIME, I DONT WANT TO SEE YOU. SHE TAKE ME HOME". THIS NURSE WENT TO GET UP AND PT TOOK OFF RUNNING TO THIS NURSE YELLING "TAKE ME HOME, DONT LEAVE ME". PT CALM DOWN WHEN OFFERED CHAIR IN THE HALLWAY TO SIT, PT SITTING WITH STAFF AND DAUGHTER. PT MORE RELAXED AND NOT YELLING OUT. MEDICATION COMPLIANT. GAIT UNSTEADY AT TIMES, WALKING WITH ONE ASSIST. INCONTINENT AND CONTINENT. DRINKING ADEQUATELY. NO S/S OF INTERACTING WITH INTERNAL STIMULI. NO S/S OF DELUSIONAL THOUGHT PROCESS NOTED. NO S/S OF DISTRESS NOTED. RESPS EVEN AND UNLABORED ON ROOM AIR. P- REORIENT FREQUENTLY WHEN CONFUSION IS NOTED. ASSESS MOOD, ORIENTATION, SI/HI, HALLUCINATIONS, DELUSIONS OR PAIN. PROVIDE MEDICATIONS ON TIME WITH EDUCATION ON EACH. 1:1 THERAPEUTIC INTERACTION PROVIDED WHEN NECESSARY. PROVIDE LOW STIMULI ENVIRONEMENT, COPING AND RELAXATION TECHNIQUES. WALK WITH PT FREQUENTLY. PROVIDE WITH FOOD AND FLUIDS FREQUENTLY. FALLING STAR PROGRAM IN PLACE. Q15 MINUTE CHECKS MAINTAINED FOR SAFETY.
[2018-12-19 19:25] VITALS: BP 138/82
--- NOTE | 2018-12-19 22:46 | NUR ---
Patient alert to person only with confusion noted. ST/LT memory deficits noted. Patient yelling out saying "I want to go home,come on. I want to go to bed now." Patient compliant with medication without any difficulty. Patient intrusive and demanding at times but is unable to be redirected. Plan to continue to encourage medication compliance and also continue to redirect/reorient when needed/appropriate. Q 15 minute safety checks continued and maintained. See [facility] flowsheet for further documentation.
--- NOTE | 2018-12-20 00:11 | NUR ---
24 HR chart check completed.
--- NOTE | 2018-12-20 06:35 | NUR ---
Patient slept approx. 0 hours throughout shift. Q 15 minutes safety checks continued and maintained.
[2018-12-20 08:26] VITALS: BP 111/64
--- NOTE | 2018-12-20 11:25 | NUR ---
DR. VALENCIA ON UNIT TO ASSESS PT, UPDATE PROVIDED.
--- NOTE | 2018-12-20 11:45 | NUR ---
AM/EXERCISE/REMINISCE/ART PT UNABLE TO ATTEND OR PARTICIPATE DUE TO LEVELS OF COGNITION/CONFUSION. PT SLEEPING RECLINED IN QUIET ROOM AT THIS TIME.
--- NOTE | 2018-12-20 14:56 | NUR ---
P: PT ANXIOUS AT TIMES, RESTLESS AND YELLING OUT THIS MORNING. I: PROVIDE EMOTIONAL SUPPORT AND 1:1 FOR PT TO VOICE FEELINGS, ENCOURAGE MED COMPLIANCE, PROVIDE LOW STIMULATION ENVIRONEMNT AND WEIGHTED BLANKET FOR PT TO CALM R: PT ALERT TO PERSON ONLY, CONFUSION AND SHORT TERM MEMORY DEFICITS NOTED PER PT BASELINE. WEIGHTED BLANKET AND LOW STIMULATION ENVIRONMENT EFFECTIVE IN CALMING PT. PT UP TO GERICHAIR WILL ABULATE WITH 1 STAFF ASSIST. PT CONTINENT OF BOWEL AND BLADDER, EPISODES OF INCONTINENCE NOTED, CARE PROVIDED NEEDED. PT MED COMPLIANT WITHOUT DIFFICULTY, UNABLE TO PROVIDE MED EDUCCATION D/T COGNITION. P: MONITOR PT BEHAVIORS ON Q15 MIN SAFETY CHECKS, ENCOURAGE MED COMPLIANCE, PROVIDE EMOTIONAL SUPPORT AND 1:1 FOR PT TO VOICE FEELINGS, PROVIDE LOW STIMULATION ENVIRONMENT AND WEIGHTED BLANKET FOR PT TO CALM.
--- NOTE | 2018-12-20 15:53 | NUR ---
PM/GAMES/MUSIC PT RESTING IN QUIET ROOM AT THIS TIME. DUE TO LEVELS OF CONFUSION/COGNITION PT UNABLE TO PARTICIPATE IN GROUP AT THIS TIME.
[2018-12-20 19:42] VITALS: BP 119/89
--- NOTE | 2018-12-21 00:27 | NUR ---
24 HR chart check completed.
--- NOTE | 2018-12-21 01:41 | NUR ---
P-ANXIOUS, RESTLESS, YELLING OUT I-PROVIDE REASSURANCE & REDIRECTION FREQUENTLY. ALERT TO PERSON ONLY. SHORT & ELECTRICAL TECH/PROJECT MANAGER MEMORY DEFICITS. FREQUENTLY YELLING OUT. "I WANT TO GO HOME". DOES CALM BRIEFLY WHEN STAFF SITS & STAYS WITH HER. COMPLIANT TAKING HS MEDICATIONS CRUSHED & MIXED IN APPLESAUCE. HAS CONTINUE TO YELL OUT. UNRECEPTIVE TO REALITY PRESENTATION. CONTINUED TO ESCELATE. MEDICATED WITH GEODON 10 MG IM @ 2129 WHICH WAS EFFECTIVE & PT DID CALM & HAS SLEPT QUIETLY SINCE 2199. P-CONTINUE TO MONITOR & PROVIDE PHYSICAL ASSISTANCE & EMOTIONAL SUPPORT NEEDED.
--- NOTE | 2018-12-21 05:30 | NUR ---
PT SLEPT QUIETLY PAST 2200
[2018-12-21 08:05] VITALS: BP 134/70
--- NOTE | 2018-12-21 11:39 | NUR ---
DR. VALENCIA ON UNIT TO ASSESS PT, UPDATE PROVIDED.
--- NOTE | 2018-12-21 12:07 | NUR ---
AM/ BRAIN GAMES/MUSIC PT RESTING IN QUIET ROOM AT THIS TIME. PT UNABLE TO PARTICIPATE DUE TO LEVELS OF CONFUSION/COGNITION.
--- NOTE | 2018-12-21 15:29 | NUR ---
NO ADVERSE MOODS OR BEHAVIORS NOTED AT THIS TIME. PT ALERT TO PERSON ONLY, CONFUSION AND SHORT TERM MEMORY DEFICITS NOTED PER PT BASELINE. PT CALM, RESTLESS AT TIMES. PT UP TO GERICHAIR D/T INABILITY TO AMBULATE INDEPENDENTLY. PT WILL AMBULATE WITH STAFF ASSISTANCE. PT INCONTINENT OF BOWEL AND BLADDER, CARE PROVIDED NEEDED. PLAN IS TO MONITOR PT BEAHVIORS ON Q15 MIN SAFETY CHECKS, ENCOURAGE MED COMPLIANCE, PROVIDE WEIGHTED BLANKET AND LOW STIMULATION ENVIRONMENT FOR PT TO CALM.
--- NOTE | 2018-12-21 17:54 | NUR ---
PT INCREASINGLY ANXIOUS AND AGITATED, YELLING OUT "I WANT TO GO HOME, TAKE ME HOME TAKE ME HOME NOW I WANNA GO HOME NINO, TAKE ME HOME". PT TEARFUL. PT OFFERED FOOD/FLUIDS, TOILETED, PLACED IN LOW STIMULATION ENVIRONMENT WITH MUSIC TO CALM. ALL INTERVENTIONS INEFFECTIVE, MEDICATED WITH GEODON IM PRN PER ORDERS. WILL CONTINUE TO MONITOR.
--- NOTE | 2018-12-21 18:34 | NUR ---
PETE DIOP, PT SITTING IN GERICHAIR IN QUIET ROOM WITH EYES OPEN. PT APPEARS LESS ANXIOUS AND TEARFUL AT THIS TIME.
[2018-12-21 19:28] VITALS: BP 139/74
--- NOTE | 2018-12-21 19:55 | NUR ---
RECEIVED A PHONE CALL FROM PTS DAUGHTER RORY. SHE STATED THAT SHE & HER SISTER, RENETTA & HER BROTHER MAGALYS "FEELS LIKE SHE HAS GOTTEN WORSE SINCE SHES BEEN HERE THAN AT THE [facility]". SHE STATED THAT THEY ARE HOPING THAT PT WILL BE DISCHARGED & BACK AT THE [facility] BY SATURDAY & THAT SHE IS LEAVING SATURDAY TO GO TO [place] FOR HER SONS & SHE WONT BE BACK UNTIL SATURDAY. SHE STATED THAT HER BROTHER MAGALYS WANTS TO TALK TO DR SAAVEDRA & LEFT HIS NUMBER [phone]. SHE ALSO STATED THAT SHE & RENETTA ARE COMING TOMORROW TO SEE PT.
--- NOTE | 2018-12-21 21:54 | NUR ---
24 HR chart check completed.
--- NOTE | 2018-12-21 23:45 | NUR ---
P-ANXIOUS, RESTLESS, YELLING OUT I-PROVIDE REASSURANCE & REDIRECTION FREQUENTLY. ALERT TO PERSON ONLY. SHORT & TEST DESKMAN MEMORY DEFICITS. FREQUENTLY YELLING OUT. "I WANT TO GO HOME. COME ON. COME ON. HURRY UP". COMPLIANT TAKING HS MEDICATION CRUSHED & MIXED IN APPLESAUCE. HAS CONTINUED TO YELL OUT. UNRECEPTIVE TO REALITY PRESENTATION. CONTINUED TO ESCELATE. MEDICATED WITH VISTARIL 50 MG IM @ 2146 WHICH WAS EFFECTIVE & PT DID CALM & HAS SLEPT QUIETLY SINCE 2329. P-CONTINUE TO MONITOR & PROVIDE PHYSICAL ASSISTANCE & EMOTIONAL SUPPORT NEEDED.
--- NOTE | 2018-12-21 23:50 | NUR ---
P-ANXIOUS, RESTLESS, YELLING OUT I-PROVIDE REASSURANCE & REDIRECTION FREQUENTLY. ALERT TO PERSON ONLY. SHORT & IS CONSULTANT MEMORY DEFICITS. FREQUENTLY YELLING OUT. "I WANT TO GO HOME. COME ON COME ON. HURRY UP". COMPLIANT TAKING HS MEDICATIONS CRUSHED & MIXED IN APPLESAUCE. HAS CONTINUED TO YELL OUT & HAVE INCREASED ANXIETY. UNRECEPTIVE TO REALITY PRESENTATION. CONTINUED TO ESCELATE. MEDICATED WITH VISTARIL 50 MG IM @ 2146 WHICH WAS EFFECTIVE & PT DID CALM & HAS SLEPT QUIETLY SINCE 2229. P-CONTINUE TO MONITOR & PROVIDE PHYSICAL ASSISTANCE & EMOTIONAL SUPPORT NEEDED.
[2018-12-22 08:00] VITALS: BP 143/82
--- NOTE | 2018-12-22 11:33 | NUR ---
AM GROUP PT WAS PRESENT FOR MORNING GROUP THERAPY. PT WAS RECLINED IN A MELANIE CHAIR WITH TRAY ON INTERMITTENTLY SLEEPING AND DEMANDING TO BE TAKEN HOME. PT COULD NOT BE REDIRECTED.
--- NOTE | 2018-12-22 13:06 | NUR ---
CONTINUED REVIEW FAXED TO [facility] AT [phone].
--- NOTE | 2018-12-22 13:46 | NUR ---
Shift chart check completed.
--- NOTE | 2018-12-22 14:11 | NUR ---
DR. LAMA NOTIFIED OF PATIENT BEING DISCHARGED TOMMORROW, TO INFORM DR. VALENCIA OF DISCHARGE.
--- NOTE | 2018-12-22 15:18 | NUR ---
P- ALERT TO PERSON ONLY; CONFUSION AND ST/LT MEMORY DEFICITS NOTED. ANXIOUS WHEN AWAKE. SLEEPING THROUGHOUT THE DAY. REFUSING MEALS. REFUSE TO ATTEND/PARTICIAPTE IN GROUP THERAPIES. I- ASSESS MOOD, ORIENTATION, SI/HI, HALLUCINATIONS, DELUSIONS OR PAIN. REORIENT FREQUENTLY WHEN CONFUSION IS NOTED. PROVIDE WITH MEDICATIONS ON TIME WITH EDUCATION EACH. 1:1 THERPEUTIC INTERACTION WITH EMOTIONAL SUPPORT AND VENTILATION OF FEELINGS PROVIDED. ENCOURAGE TO ATTEND/PARTICIPATE IN GROUP THERAPIES. ENCOURAGE TO INTERACT WITH PEERS AND STAFF. PROVIDE WITH ACTIVITIES. ENCOURAGE TO STAY AWAKE DURING THE DAY. ONE ASSIST WITH ADLS, CARE, AND TOILETING DUE TO INCREASED CONFUSION DURING THESE TIMES. ENCOURAGE AND PROVIDE WITH FOOD AND FLUIDS FREQUENTLY. AMBULATE FREQUENTLY. R- REMAINS AT BASELINE CONFUSION EVEN WITH REORIENTATION PROVIDED. UNABLE TO ASSESS SI/HI, HALLUCINATIONS OR PAIN DUE TO COGNITION. MOOD IS ANXIOUS WHILE AWAKE. PT STATES "TAKE ME HOME. COME ON NOW TAKE ME HOME". "NO, THATS NOT WHAT I WANT" "GET ME OUT OF HERE" "TAKE ME HOME". PT REPEATS SELF, 1:1 THERAPEUTIC INTERACTION INEFFECTIVE; LOW STIMULI ENVIRONMENT INEFFECTIVE; ACTIVITIES INEFFECITVE. PT SLEEPING THROUGH MEALS AND REFUSING FOOD. ENCOURAGE FLUIDS AND DRINKING. REFUSING TO ATTEND/PARTICIPATE GROUP THERAPIES. NO S/S OF INTERACTING WITH INTERNAL STIMULI. NO S/S OF DELUSIONAL THOUGHT PROCESS NOTED. NO S/S OF DISTRESS NOTED. RESPS EVEN AND UNLABORED ON ROOM AIR. MEDICATION COMPLIANT. ONE ASSIST WITH ADLS, CARE, TOILETING, AND NUTRITION DUE TO INCREASED CONFUSION AT THESE TIMES. PT REFUSING TO STAY AWAKE OR EAT EVEN WITH MUCH ENCOURAGEMENT AND REAPPROACH. P- REORIENT FREQUENTLY WHEN CONFUSION IS NOTED. ASSESS MOOD, ORIENTATION, SI/HI, HALLUCINATIONS, DELUSIONS OR PAIN EVERY SHIFT. PROVIDE WITH MEDICATIONS ON TIME WITH EDUCATION ON EACH. ENCOURAGE TO STAY AWAKE DURING THE DAY DUE TO GETTING NIGHTS AND DAYS CONFUSED. ENCOURAGE TO ATTEND/PARTICIPATE IN GROUP THERAPIES. ENCOURAGE INTERACTION WITH PEERS AND STAFF. PROVIDE WITH ACTIVITIES. PROVIDE WITH FOOD AND FLUIDS FREQUENTLY. ONE ASSIST WITH ADLS, CARE, TOILETING DUE TO INCREASED CONFUSION AT THESE TIMES. 1:1 THERPEUTIC INTERACTION PROVIDED WHEN NECESSARY. Q15 MINUTE CHECKS MAINTAINED FOR SAFETY.
--- NOTE | 2018-12-22 15:39 | NUR ---
PM GROUP PT DID NOT ATTEND AFTERNOON GROUP THERAPY. PT WAS IN BED RESTING.
[2018-12-22 19:26] VITALS: BP 140/70
--- NOTE | 2018-12-22 20:02 | NUR ---
24 HR chart check completed.
--- NOTE | 2018-12-22 20:30 | NUR ---
EVENING/LEISURE SKILLS PT IRRITABLE AND ANXIOUS AT THIS TIME STATING "I WANT TO GO HOME, WHY WHY WHY" REPEATEDLY. PT DID BEGIN TO RELAX IN ACTIVITY ROOM WITH NURSE BY HER SIDE. DUE TO LEVELS OF COGNITION/CONFUSION PT UNABLE TO PARTICIPATE IN GROUP.
--- NOTE | 2018-12-22 21:27 | NUR ---
P-ANXIOUS, RESTLESS, YELLING OUT I-PROVIDE REASSURANCE & REDIRECTION FREQUENTLY. ALERT TO PERSON ONLY. SHORT & INTERVENTIONAL SALE CONSULTANT MEMORY DEFICITS. FREQUENTLY YELLING OUT. "I WANT TO GO HOME. WHY WHY WHY. COME ON. HURRY UP". COMPLIANT TAKING HS MEDICATION CRUSHED & MIXED IN APPLESAUCE. UNRECEPTIVE TO REALITY PRESENTATION. P-CONTINUE TO MONITOR & PROVIDE PHYSICAL ASSISTANCE & EMOTIONAL SUPPORT NEEDED.
--- NOTE | 2018-12-23 05:47 | NUR ---
PT HAS SLEPT QUIETLY PAST 2300. SHOWERED THIS AM.
[2018-12-23 07:37] VITALS: BP 112/76
--- NOTE | 2018-12-23 08:00 | NUR ---
Treatment Plan meeting with Dr. Hermosillo, RN, AT, SW and Break Out Man. Plan for discharge today. Pt. will return to [facility]. Call placed to [facility] Global Expansion Sales Director and left message. Discharge Paperwork faxed to facility [phone].
[2018-12-23] MEDS ORDERED: CLONAZEPAM0.5 M2 PO (08:49)
[2018-12-23] MEDS ORDERED: MEMANTINE HCL10 MG PO (08:49)
[2018-12-23] MEDS ORDERED: OLANZAPINE10 MG PO (08:49)
[2018-12-23] MEDS ORDERED: DULOXETINE HCL60 MG PO (08:49)
[2018-12-23] MEDS ORDERED: CLONAZEPAM1 MG PO (08:49)
[2018-12-23] MEDS ORDERED: EXELON13.3 MG/21 T (08:49)
[2018-12-23] MEDS ORDERED: BENZTROPINE ME0.5 MG PO (08:49)
--- NOTE | 2018-12-23 08:56 | NUR ---
DR. SUMMERS NOTIFIED OF PATIENT BEING DISCHARGED, TO INFORM DR. JACKSON OF DISCHARGE.
--- NOTE | 2018-12-23 10:07 | NUR ---
NURSE TO NURSE REPORT GIVEN TO "SAL" AT [facility]. [facility] HERE TO ESCORT PT OFF UNIT. SECURITY PRESENT. PT DISCHARGED OFF UNIT AT THIS TIME VIA CART. ALL BELONGINGS AND PAPERWORK SENT WITH PT.
--- NOTE | 2018-12-23 10:50 | NUR ---
Patient discharged to [facility] today. Follow-up will be with Dr Hermosillo, visiting psychiatrist. Pt remained confused throughout her [facility] stay and did not participate in programming. Individual interventions were made in an attempt to lessen pt's anxiety. Pt's outbursts did lessen. At time of discharge, a call was made to Dr Hermosillo from [facility] voicing concern that pt was not ready to discharge. Dr Hermosillo spoke to this hand sign writer and shared the [facility] concerns. Ambulance was in [place] and ready to transport pt when notified of concerns. This hand sign writer phoned NILO Rainey at [facility], and explained that the ambulance for transport was on the unit. Offered to Brigid that Dr Hermosillo or [facility] will be available should concerns arise when ptis at [facility].
== END 2018-12-23 10:07 | disposition other institution (70) | DRG 883 ==
LOC: 3N 13:45
PROVIDERS: Registered Nurse; Student in an Organized Health Care Education/Training Program; ADMIT Psychiatry & Neurology Psychiatry
DX: F63.81 Intermittent explosive disorder (principal); F02.81 Dementia in other diseases classified elsewhere, unspecified severity, with behavioral disturbance; F33.3 Major depressive disorder, recurrent, severe with psychotic symptoms; R41.0 Disorientation, unspecified; F41.1 Generalized anxiety disorder; I49.9 Cardiac arrhythmia, unspecified; I10 Essential (primary) hypertension; G30.1 Alzheimer's disease with late onset; M53.3 Sacrococcygeal disorders, not elsewhere classified; R29.6 Repeated falls; I49.1 Atrial premature depolarization; Z79.82 Long term (current) use of aspirin; Z79.899 Other long term (current) drug therapy